=== PATIENT | male | born 1950 | race Hispanic/Latino ===

== ENCOUNTER 2018-09-01 15:34 | Inpatient (IN) | payer MEDICARE ==
[2018-09-01] MEDS ORDERED: NACL 0.9% 1000 ML 1,000 ML IV ONE ×2 (15:56→19:37)
[2018-09-01 16:17] LABS: Basophils # (Auto) 0.1 K/mm3 (0.0-0.1); Basophils % (Auto) 0.9 % (0.0-1.8); Eosinophils # (Auto) 0.1 K/mm3 (0.0-0.4); Eosinophils % (Auto) 1.2 % (0.0-4.3); Hematocrit 38.9 % (35.5-45.6); Hemoglobin 13.8 gm/dl (11.8-15.2); Lymphocytes # (Auto) 1.9 K/mm3 (1.2-5.4); Lymphocytes % (Auto) 15.4 % (13.4-35.0); Mean Corpuscular HGB Conc 36 % (32-34); Mean Corpuscular Volume 90 fl (84-94); Monocytes # (Auto) 0.9 K/mm3 (0.0-0.8); Monocytes % (Auto) 7.7 % (0.0-7.3); Platelet Count 195 K/mm3 (140-440); Red Blood Count 4.33 M/mm3 (3.65-5.03); Red Cell Distribution Width 14.3 % (13.2-15.2)
[2018-09-01 16:26] LABS: INR 1.02 (0.87-1.13)
[2018-09-01 16:27] LABS: Partial Thromboplastin Time 29.6 Sec. (24.2-36.6)
[2018-09-01 16:37] LABS: Alanine Aminotransferase 26 units/L (7-56); Albumin 4.4 g/dL (3.9-5); BUN/Creatinine Ratio 16; Blood Urea Nitrogen 19 mg/dL (9-20); Calcium 9.1 mg/dL (8.4-10.2); Hemolysis Index 9
[2018-09-01 17:59] LABS: Bilirubin,Urine NEG (Negative); Blood,Urine NEG (Negative); Color,Urine Yellow (Yellow); WBC,Urine < 1.0 /HPF (0.0-6.0)
[2018-09-01 18:08] LABS: Amphetamine Screen,Urine PRESUMPTIVE NEGATIVE; Benzodiazepines Screen,Urine PRESUMPTIVE NEGATIVE; Cannabinoid Screen,Urine PRESUMPTIVE NEGATIVE; Cocaine Screen,Urine PRESUMPTIVE NEGATIVE; Methadone Screen,Urine PRESUMPTIVE NEGATIVE; Opiate Screen,Urine PRESUMPTIVE NEGATIVE
--- NOTE | 2018-09-01 18:31 | Cat Scan Report ---
PROCEDURE: CT HEAD/BRAIN WO CON TECHNIQUE: Computerized tomography of the head was performed without contrast material. CT DOSE LENGTH PRODUCT: 1077.2 mGycm HISTORY: AMS COMPARISONS: None . FINDINGS: Low-attenuation in the subcortical and deep white matter of the cerebral hemispheres bilaterally most likely represents chronic postischemic demyelination/small vessel disease. There appear to be lacunar infarcts in the white matter of the maciel radiata, centrum semiovale dariana l and left caudate of indeterminate age. There is no evidence of intracranial hemorrhage or mass effect. Ventricular size is concordant with the degree of atrophy. There is atherosclerotic vascular calcification of the internal carotid arteries bilaterally and left vertebral artery at the skull base. The visualized portions of the orbits, paranasal and mastoid sinuses are notable for near complete op acification of the right frontal sinus with an air-fluid level. There is mild to moderate bilateral e thmoid sinus mucosal thickening. The bony structures are unremarkable. IMPRESSION: 1. White matter changes that most likely represent chronic postischemic demyelination/small vessel di sease and chronic lacunar infarcts in the cerebral white matter and left basal ganglia of indetermina te age. If there is a clinical suspicion of acute cerebral ischemia and if there is no clinical contraindicat ion, MRI brain may be helpful. 2. Bilateral ethmoid and right frontal sinus disease with possible acute sinusitis right frontal sinu s. This document is electronically signed by Cinthya Sewell MD., September 01 2018 06:29:39 PM ET
--- NOTE | 2018-09-01 18:35 | XRay Report ---
PROCEDURE: XR CHEST 1V AP TECHNIQUE: Chest radiograph single view. HISTORY: Altered Mental Status COMPARISONS: None . FINDINGS: There is the appearance of patchy areas of pulmonary consolidation in the right upper lung field and lung bases bilaterally suggestive of pulmonary infiltrates. There is no evidence of pneumothorax or pleural fluid collection. The cardiac silhouette is enlarged. The thoracic aorta is mildly tortuous. The bony structures are notable for levocurvature of the lower thoracic spine. IMPRESSION: 1. Patchy areas of pulmonary consolidation right upper lung field and both lung bases suggestive of p ulmonary infiltrates. PA and lateral views of the chest were CT chest may be helpful for further evaluation. 2. Enlarged cardiac silhouette. This document is electronically signed by Cinthya Sewell MD., September 01 2018 06:33:02 PM ET
[2018-09-01] MEDS ORDERED: LEVAQUIN 750MG/150ML 750 MG/150 ML BAG IV ONE (19:18)
--- NOTE | 2018-09-01 19:21 | Emergency Department Report ---
ED Altered Mental Status HPI - General Chief Complaint: Altered Mental Status Stated Complaint: RACHELLE Time Seen by Provider: 09/01/18 15:56 Source: patient, EMS Mode of arrival: Stretcher Limitations: Altered Mental Status - History of Present Illness Initial Comments: 67-year-old male found [employer], very disoriented, does not know the date, time, and not oriented to person. He was then transferred to ED via EMS. Finger stick glucose were within normal limits, upon arrival, patient denies any focal weakness, was oriented to time but not to person and place. Lean ED patient became more oriented, denies any focal weakness, complain of a mild generalized weakness. Unable to locate patient's family although several attempts were made, by calling the phone numbers on his phone that had similar last name to his. After a few hours in ED patient's neighbor was able to be located, he states that the patient's mental status is totally different from what he used to. - Related Data Home Medications Medication Instructions Recorded Confirmed Last Taken Unobtainable 09/01/18 09/01/18 Unknown Allergies Allergy/AdvReac Type Severity Reaction Status Date / Time No Known Allergies Allergy Unverified 09/01/18 16:03 ED Review of Systems ROS: Stated complaint: RACHELLE Other details as noted in HPI Comment: Unobtainable due to pts medical conditions ED Past Medical Hx - Social History Smoking Status: Current Every Day Smoker Substance Use Type: None - Medications Home Medications: Home Medications Medication Instructions Recorded Confirmed Last Taken Type Unobtainable 09/01/18 09/01/18 Unknown History ED Physical Exam - General Limitations: Altered Mental Status General appearance: alert, in no apparent distress - Head Head exam: Present: atraumatic, normocephalic - Eye Eye exam: Present: normal appearance - ENT ENT exam: Present: normal exam - Neck Neck exam: Present: normal inspection - Respiratory Respiratory exam: Present: other (decreased breath sound bilaterally) - Cardiovascular Cardiovascular Exam: Present: regular rate - GI/Abdominal GI/Abdominal exam: Present: soft, normal bowel sounds - Extremities Exam Extremities exam: Present: normal inspection - Back Exam Back exam: Present: normal inspection - Neurological Exam Neurological exam: Present: alert, oriented X3 - Assessment Assessment Interval: Baseline - Level of Consciousness 1a. Level of Consciousness: alert/keenly responsive - LOC Questions 1b. LOC Questions: answers both correctly - LOC Command 1c. LOC Commands: performs tasks correctly - Best Gaze 2. Best Gaze: normal - Visual 3. Visual: no visual loss - Facial Palsy 4. Facial Palsy: normal symmetrical movement - Motor Arm 5a. Motor Arm Left: no drift 5b. Motor Arm Right: no drift - Motor Leg 6a. Motor Leg Left: no drift 6b. Motor Leg Right: no drift - Limb Ataxia 7. Limb Ataxia: absent - Sensory 8. Sensory: normal - Best Language 9. Best Language: no aphasia - Dysarthria 10. Dysarthria: normal - Extinction and Inattention 11. Extinction/Inattention: no abnormality - Scoring Total Score: 0 Stroke Severity: No Stroke Symptoms ED Course Vital Signs 09/01/18 09/01/18 09/01/18 15:53 15:59 17:22 Temperature 98.2 F Pulse Rate 90 70 Respiratory 19 19 18 Rate Blood Pressure 160/97 Blood Pressure 163/89 [Left] O2 Sat by Pulse 96 96 96 Oximetry 09/01/18 18:54 Temperature Pulse Rate 78 Respiratory 14 Rate Blood Pressure Blood Pressure 186/97 [Left] O2 Sat by Pulse 96 Oximetry - Lab Data Result diagrams: 09/01/18 Unknown 09/01/18 Unknown Lab Results 09/01/18 09/01/18 09/01/18 Range/Units 16:08 17:50 17:50 WBC (4.5-11.0) K/mm3 RBC (3.65-5.03) M/mm3 Hgb (11.8-15.2) gm/dl Hct (35.5-45.6) % MCV (84-94) fl MCH (28-32) pg MCHC (32-34) % RDW (13.2-15.2) % Plt Count (140-440) K/mm3 Lymph % (Auto) (13.4-35.0) % [place] % (Auto) (0.0-7.3) % Eos % (Auto) (0.0-4.3) % Baso % (Auto) (0.0-1.8) % Lymph # (1.2-5.4) K/mm3 [place] # (0.0-0.8) K/mm3 Eos # (0.0-0.4) K/mm3 Baso # (0.0-0.1) K/mm3 Seg Neutrophils % (40.0-70.0) % Seg Neutrophils # (1.8-7.7) K/mm3 PT (12.2-14.9) Sec. INR (0.87-1.13) APTT (24.2-36.6) Sec. Sodium (137-145) mmol/L Potassium (3.6-5.0) mmol/L Chloride (98-107) mmol/L Carbon Dioxide (22-30) mmol/L Anion Gap mmol/L BUN (9-20) mg/dL Creatinine (0.8-1.5) mg/dL Estimated GFR ml/min BUN/Creatinine Ratio % Glucose (75-100) mg/dL Lactic Acid 1.40 (0.7-2.0) mmol/L Calcium (8.4-10.2) mg/dL Total Bilirubin (0.1-1.2) mg/dL AST (5-40) units/L ALT (7-56) units/L Alkaline Phosphatase (35-129) units/L Total Protein (6.3-8.2) g/dL Albumin (3.9-5) g/dL Albumin/Globulin Ratio % Urine Color Yellow (Yellow) Urine Turbidity Clear (Clear) Urine pH 7.0 (5.0-7.0) Ur Specific Felt 1.012 (1.003-1.030) Urine Protein 100 mg/dl (Negative) mg/dL Urine Glucose (UA) Neg (Negative) mg/dL Urine Ketones Tr (Negative) mg/dL Urine Blood Neg (Negative) Urine Nitrite Neg (Negative) Urine Bilirubin Neg (Negative) Urine Urobilinogen 2.0 (<2.0) mg/dL Ur Leukocyte Esterase Neg (Negative) Urine WBC (Auto) < 1.0 (0.0-6.0) /HPF Urine RBC (Auto) 2.0 (0.0-6.0) /HPF Urine Opiates Screen Presumptive negative Urine Methadone Screen Presumptive negative Ur Barbiturates Screen Presumptive negative Ur Phencyclidine Scrn Presumptive negative Ur Amphetamines Screen Presumptive negative U Benzodiazepines Scrn Presumptive negative Urine Cocaine Screen Presumptive negative U Marijuana (THC) Screen Presumptive negative Drugs of Abuse Note Disclamer Plasma/Serum Alcohol (0-0.07) % 09/01/18 09/01/18 09/01/18 Range/Units 19:22 Unknown Unknown WBC 12.3 H (4.5-11.0) K/mm3 RBC 4.33 (3.65-5.03) M/mm3 Hgb 13.8 (11.8-15.2) gm/dl Hct 38.9 (35.5-45.6) % MCV 90 (84-94) fl MCH 32 (28-32) pg MCHC 36 H (32-34) % RDW 14.3 (13.2-15.2) % Plt Count 195 (140-440) K/mm3 Lymph % (Auto) 15.4 (13.4-35.0) % [place] % (Auto) 7.7 H (0.0-7.3) % Eos % (Auto) 1.2 (0.0-4.3) % Baso % (Auto) 0.9 (0.0-1.8) % Lymph # 1.9 (1.2-5.4) K/mm3 [place] # 0.9 H (0.0-0.8) K/mm3 Eos # 0.1 (0.0-0.4) K/mm3 Baso # 0.1 (0.0-0.1) K/mm3 Seg Neutrophils % 74.8 H (40.0-70.0) % Seg Neutrophils # 9.2 H (1.8-7.7) K/mm3 PT 13.1 (12.2-14.9) Sec. INR 1.02 (0.87-1.13) APTT 29.6 (24.2-36.6) Sec. Sodium (137-145) mmol/L Potassium (3.6-5.0) mmol/L Chloride (98-107) mmol/L Carbon Dioxide (22-30) mmol/L Anion Gap mmol/L BUN (9-20) mg/dL Creatinine (0.8-1.5) mg/dL Estimated GFR ml/min BUN/Creatinine Ratio % Glucose (75-100) mg/dL Lactic Acid (0.7-2.0) mmol/L Calcium (8.4-10.2) mg/dL Total Bilirubin (0.1-1.2) mg/dL AST (5-40) units/L ALT (7-56) units/L Alkaline Phosphatase (35-129) units/L Total Protein (6.3-8.2) g/dL Albumin (3.9-5) g/dL Albumin/Globulin Ratio % Urine Color (Yellow) Urine Turbidity (Clear) Urine pH (5.0-7.0) Ur Specific Felt (1.003-1.030) Urine Protein (Negative) mg/dL Urine Glucose (UA) (Negative) mg/dL Urine Ketones (Negative) mg/dL Urine Blood (Negative) Urine Nitrite (Negative) Urine Bilirubin (Negative) Urine Urobilinogen (<2.0) mg/dL Ur Leukocyte Esterase (Negative) Urine WBC (Auto) (0.0-6.0) /HPF Urine RBC (Auto) (0.0-6.0) /HPF Urine Opiates Screen Urine Methadone Screen Ur Barbiturates Screen Ur Phencyclidine Scrn Ur Amphetamines Screen U Benzodiazepines Scrn Urine Cocaine Screen U Marijuana (THC) Screen Drugs of Abuse Note Plasma/Serum Alcohol < 0.01 (0-0.07) % 09/01/18 Range/Units Unknown WBC (4.5-11.0) K/mm3 RBC (3.65-5.03) M/mm3 Hgb (11.8-15.2) gm/dl Hct (35.5-45.6) % MCV (84-94) fl MCH (28-32) pg MCHC (32-34) % RDW (13.2-15.2) % Plt Count (140-440) K/mm3 Lymph % (Auto) (13.4-35.0) % [place] % (Auto) (0.0-7.3) % Eos % (Auto) (0.0-4.3) % Baso % (Auto) (0.0-1.8) % Lymph # (1.2-5.4) K/mm3 [place] # (0.0-0.8) K/mm3 Eos # (0.0-0.4) K/mm3 Baso # (0.0-0.1) K/mm3 Seg Neutrophils % (40.0-70.0) % Seg Neutrophils # (1.8-7.7) K/mm3 PT (12.2-14.9) Sec. INR (0.87-1.13) APTT (24.2-36.6) Sec. Sodium 141 (137-145) mmol/L Potassium 3.5 L (3.6-5.0) mmol/L Chloride 104.2 (98-107) mmol/L Carbon Dioxide 21 L (22-30) mmol/L Anion Gap 19 mmol/L BUN 19 (9-20) mg/dL Creatinine 1.2 (0.8-1.5) mg/dL Estimated GFR > 60 ml/min BUN/Creatinine Ratio 16 % Glucose 116 H (75-100) mg/dL Lactic Acid (0.7-2.0) mmol/L Calcium 9.1 (8.4-10.2) mg/dL Total Bilirubin 0.60 (0.1-1.2) mg/dL AST 21 (5-40) units/L ALT 26 (7-56) units/L Alkaline Phosphatase 64 (35-129) units/L Total Protein 7.0 (6.3-8.2) g/dL Albumin 4.4 (3.9-5) g/dL Albumin/Globulin Ratio 1.7 % Urine Color (Yellow) Urine Turbidity (Clear) Urine pH (5.0-7.0) Ur Specific Felt (1.003-1.030) Urine Protein (Negative) mg/dL Urine Glucose (UA) (Negative) mg/dL Urine Ketones (Negative) mg/dL Urine Blood (Negative) Urine Nitrite (Negative) Urine Bilirubin (Negative) Urine Urobilinogen (<2.0) mg/dL Ur Leukocyte Esterase (Negative) Urine WBC (Auto) (0.0-6.0) /HPF Urine RBC (Auto) (0.0-6.0) /HPF Urine Opiates Screen Urine Methadone Screen Ur Barbiturates Screen Ur Phencyclidine Scrn Ur Amphetamines Screen U Benzodiazepines Scrn Urine Cocaine Screen U Marijuana (THC) Screen Drugs of Abuse Note Plasma/Serum Alcohol (0-0.07) % - Medical Decision Making 67-year-old male found [employer], very disoriented, does not know the date, time, and not oriented to person. He was then transferred to ED via EMS. Finger stick glucose were within normal limits, upon arrival, patient denies any focal weakness, was oriented to time but not to person and place. Lean ED patient became more oriented, denies any focal weakness, complain of a mild generalized weakness. Unable to locate patient's family although several attempts were made, by calling the phone numbers on his phone that had similar last name to his. After a few hours in ED patient's neighbor was able to be located, he states that the patient's mental status is totally different from what he used to. Pulmonary infiltrate in x-ray, will cover with antibiotics. Obtain blood cultures. [facility] Critical care attestation.: If time is entered above; I have spent that time in minutes in the direct care of this critically ill patient, excluding procedure time. ED Disposition Clinical Impression: Altered mental status Qualifiers: Altered mental status type: unspecified Qualified Code(s): R41.82 - Altered mental status, unspecified Pneumonia Qualifiers: Pneumonia type: due to unspecified organism Laterality: bilateral Lung location: unspecified part of lung Qualified Code(s): J18.9 - Pneumonia, unspecified organism Disposition: OP ADMIT IP TO THIS HOSP Is pt being admited?: Yes Does the pt Need Aspirin: No Condition: Stable Instructions: Bacterial Pneumonia (ED) Referrals: SUNNY LIZAMA MD [Primary Care Provider] - 3-5 Days
[2018-09-01] MEDS ORDERED: ROCEPHIN/NS 2 GM/100 ML 2 GM/100 ML BAG IV ONE (20:00)
[2018-09-01] MEDS ORDERED: TYLENOL PO PRN (20:08)
[2018-09-01] MEDS ORDERED: SODIUM CHLORIDE FLUSH SYRINGE 10 ML IV PRN (20:08)
[2018-09-01] MEDS ORDERED: ZOFRAN IV PRN (20:08)
[2018-09-01] MEDS ORDERED: ROCEPHIN IM ONE (20:24)
--- NOTE | 2018-09-01 20:34 | History and Physical Report ---
History of Present Illness Date of examination: 09/01/18 Date of admission: 09/01/18 19:36 Chief complaint: Altered mental status History of present illness: 67-year-old male found at local [facility], where he was attempted to drive his car inside the building who presents to our facility via EMS. He was found to be confused and disoriented. Patient is unable to provide history due to his altered mental status. Patient's neighbor Brad is at bedside but unable to provide detailed medical history. However Brad verified patient's mentation is not baseline. Patient has a brother by the name of Chung was also able to provide any detailed information. Information is needed or for patient updates please contact Brad at [phone]. Past History Past Medical History: No medical history (unable to obtain due to patient's altered mental status) Medications and Allergies Allergies Allergy/AdvReac Type Severity Reaction Status Date / Time No Known Allergies Allergy Unverified 09/01/18 16:03 Home Medications Medication Instructions Recorded Confirmed Last Taken Type Unobtainable 09/01/18 09/01/18 Unknown History Active Meds: Active Medications Acetaminophen (Tylenol) 650 mg PO Q4H PRN PRN Reason: Pain MILD(1-3)/Fever >100.5/HAYDEN Amlodipine Besylate (Norvasc) 5 mg PO ONCE ONE Stop: 09/01/18 20:17 Aspirin (Baby Aspirin) 81 mg PO QDAY [facility] Atorvastatin Calcium (Lipitor) 20 mg PO QHS [facility] Docusate Sodium (Colace) 100 mg PO BID [facility] Enoxaparin Sodium (Lovenox) 40 mg SUB-Q QDAY [facility] Hydralazine HCl (Apresoline) 10 mg IV Q4HR PRN PRN Reason: Blood Pressure Sodium Chloride (Nacl 0.9% 1000 Ml) 1,000 mls @ 999 mls/hr IV BOLUS ONE Stop: 09/01/18 20:37 Levofloxacin/Dextrose (Levaquin 500mg/100ml) 500 mg in 100 mls @ 100 mls/hr IV Q24HR [facility]; Protocol Ondansetron HCl (Zofran) 4 mg IV Q8H PRN PRN Reason: Nausea And Vomiting Potassium Chloride (K-Dur) 40 meq PO ONCE ONE Stop: 09/01/18 20:18 Sodium Chloride (Sodium Chloride Flush Syringe 10 Ml) 10 ml IV BID LIAN Sodium Chloride (Sodium Chloride Flush Syringe 10 Ml) 10 ml IV PRN PRN PRN Reason: LINE FLUSH Review of Systems ROS unobtainable: due to mental status Exam - Physical Exam Narrative exam: Physical exam General appearance: Present: No acute distress, confused, alert, oriented to self and place, older adult male - EENT Eyes: Present: PERRL, EOM intact ENT: hearing intact, poor dentition - Neck Neck: Present: supple, normal ROM - Respiratory Respiratory effort: Non-labored Respiratory: bilateral: diminished (bases) - Cardiovascular Heart rate: 85 (bpm) Rhythm: Sinus rhythm, incomplete right bundle branch block Heart Sounds: Present: S1 & S2. Absent: rub, click - Extremities Extremities: no ischemia, pulses intact, - Peripheral Assessment Peripheral Pulses: within normal limits - Abdominal General gastrointestinal: soft, non-tender, normal bowel sounds - Integumentary Integumentary: Present: warm, dry - Musculoskeletal Musculoskeletal: Able to move all extremities -Neurological Neurological: CN II-XII intact - Psychiatric Psychiatric: Confused but cooperative - Constitutional Vitals: Temp Pulse Resp BP Pulse Ox 98.2 F 78 17 178/92 95 09/01/18 20:13 09/01/18 20:13 09/01/18 20:13 09/01/18 20:13 09/01/18 20:13 Results - Labs CBC & Chem 7: 09/01/18 Unknown 09/01/18 Unknown Labs: Laboratory Last Values WBC 12.3 K/mm3 (4.5-11.0) H 09/01/18 Unknown RBC 4.33 M/mm3 (3.65-5.03) 09/01/18 Unknown Hgb 13.8 gm/dl (11.8-15.2) 09/01/18 Unknown Hct 38.9 % (35.5-45.6) 09/01/18 Unknown MCV 90 fl (84-94) 09/01/18 Unknown MCH 32 pg (28-32) 09/01/18 Unknown MCHC 36 % (32-34) H 09/01/18 Unknown RDW 14.3 % (13.2-15.2) 09/01/18 Unknown Plt Count 195 K/mm3 (140-440) 09/01/18 Unknown Lymph % (Auto) 15.4 % (13.4-35.0) 09/01/18 Unknown [place] % (Auto) 7.7 % (0.0-7.3) H 09/01/18 Unknown Eos % (Auto) 1.2 % (0.0-4.3) 09/01/18 Unknown Baso % (Auto) 0.9 % (0.0-1.8) 09/01/18 Unknown Lymph # 1.9 K/mm3 (1.2-5.4) 09/01/18 Unknown [place] # 0.9 K/mm3 (0.0-0.8) H 09/01/18 Unknown Eos # 0.1 K/mm3 (0.0-0.4) 09/01/18 Unknown Baso # 0.1 K/mm3 (0.0-0.1) 09/01/18 Unknown Seg Neutrophils % 74.8 % (40.0-70.0) H 09/01/18 Unknown Seg Neutrophils # 9.2 K/mm3 (1.8-7.7) H 09/01/18 Unknown PT 13.1 Sec. (12.2-14.9) 09/01/18 Unknown INR 1.02 (0.87-1.13) 09/01/18 Unknown APTT 29.6 Sec. (24.2-36.6) 09/01/18 Unknown Sodium 141 mmol/L (137-145) 09/01/18 Unknown Potassium 3.5 mmol/L (3.6-5.0) L 09/01/18 Unknown Chloride 104.2 mmol/L (98-107) 09/01/18 Unknown Carbon Dioxide 21 mmol/L (22-30) L 09/01/18 Unknown 19 mmol/L 09/01/18 Unknown BUN 19 mg/dL (9-20) 09/01/18 Unknown 1.2 mg/dL (0.8-1.5) 09/01/18 Unknown Estimated GFR > 60 ml/min 09/01/18 Unknown 16 % 09/01/18 Unknown Glucose 116 mg/dL (75-100) H 09/01/18 Unknown Lactic Acid 1.40 mmol/L (0.7-2.0) 09/01/18 16:08 Calcium 9.1 mg/dL (8.4-10.2) 09/01/18 Unknown 0.60 mg/dL (0.1-1.2) 09/01/18 Unknown AST 21 units/L (5-40) 09/01/18 Unknown ALT 26 units/L (7-56) 09/01/18 Unknown 64 units/L (35-129) 09/01/18 Unknown 7.0 g/dL (6.3-8.2) 09/01/18 Unknown 4.4 g/dL (3.9-5) 09/01/18 Unknown 1.7 % 09/01/18 Unknown Yellow (Yellow) 09/01/18 17:50 Clear (Clear) 09/01/18 17:50 7.0 (5.0-7.0) 09/01/18 17:50 Ur Specific [place] 1.012 (1.003-1.030) 09/01/18 17:50 100 mg/dl mg/dL (Negative) 09/01/18 17:50 Neg mg/dL (Negative) 09/01/18 17:50 Tr mg/dL (Negative) 09/01/18 17:50 Neg (Negative) 09/01/18 17:50 Neg (Negative) 09/01/18 17:50 Neg (Negative) 09/01/18 17:50 2.0 mg/dL (<2.0) 09/01/18 17:50 Ur Leukocyte Esterase Neg (Negative) 09/01/18 17:50 < 1.0 /HPF (0.0-6.0) 09/01/18 17:50 2.0 /HPF (0.0-6.0) 09/01/18 17:50 Presumptive negative 09/01/18 17:50 Presumptive negative 09/01/18 17:50 Ur Barbiturates Screen Presumptive negative 09/01/18 17:50 Ur Phencyclidine Scrn Presumptive negative 09/01/18 17:50 Ur Amphetamines Screen Presumptive negative 09/01/18 17:50 U Benzodiazepines Scrn Presumptive negative 09/01/18 17:50 Presumptive negative 09/01/18 17:50 U Marijuana (THC) Screen Presumptive negative 09/01/18 17:50 Disclamer 09/01/18 17:50 Plasma/Serum Alcohol < 0.01 % (0-0.07) 09/01/18 19:22 - Imaging and Cardiology EKG: image reviewed (sinus rhythm 85 bpm, incomplete right bundle branch block) Chest x-ray: report reviewed (1. Patchy areas of pulmonary consolidation right upper lung field and both lung bases suggestive of pulmonary infiltrates. PA and lateral views of the chest were CT chest may be helpful for further evaluation. 2. Enlarged cardiac silhouette. ), image reviewed CT Scan - head: report reviewed (IMPRESSION: 1. White matter changes that most likely represent chronic postischemic demyelination/small vessel disease and chronic lacunar infarcts in the cerebral white matter and left basal ganglia of indeterminate age. If there is a clinical suspicion of acute cerebralischemia and if there is no clinical contraindication, MRI brain may be helpful. 2. Bilateral ethmoid and right frontal sinus disease with possible acute sinusitis right frontal sinus.), image reviewed Assessment and Plan Assessment and plan: 67-year-old male found at [facility], where he was attempted to drive his car inside the building who presents to our facility via EMS. He was found to be confused and disoriented. Upon arrival to our facility patient is found to be in hypertensive urgency with blood pressure 186/97. Blood glucose WNL. CXR showed patchy areas of pulmonary consolidation right upper lung field and both lung bases suggestive of pulmonary infiltrates. WBC elevated at 12.3. UA and toxicology are negative. 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 At the time of my examination patient orientation has slightly improved. He is oriented to self and place but otherwise remains confused. Will admit to Telemetry. Community acquired pneumonia Acute metabolic encephalopathy-likely secondary to CPAP R/O TIA Hypertensive urgency Abnormal head CT Hypokalemia Leukocytosis Plan: Continue supportive care Continuous telemetry monitoring Neurochecks Monitor WBC Start Levaquin 500 mg every 24 hours MRI brain pending Monitor electrolytes; replete as needed Potassium 40 mEq by mouth 1 Monitor BP IV hydralazine when necessary Start Norvasc 5 mg daily Lipid panel pending ASA 81 mg daily, Lipitor 20 mg daily at bedtime Advance Directives: No VTE prophylaxis?: Chemical Plan of care discussed with patient/family: Yes
[2018-09-01] MEDS ORDERED: NORVASC PO ONE (21:00)
[2018-09-01] MEDS: ATIVAN IV PRN (22:22)
[2018-09-01] MEDS: COLACE PO SCH (22:28)
[2018-09-01] MEDS: K-DUR PO ONE ×2 (22:29→23:28)
[2018-09-01] MEDS: SODIUM CHLORIDE FLUSH SYRINGE 10 ML IV SCH (22:29)
[2018-09-01] MEDS ORDERED: POTASSIUM CHLORIDE PO ONE (23:00)
[2018-09-02 06:00] LABS: Basophils # (Auto) 0.1 K/mm3 (0.0-0.1); Basophils % (Auto) 0.6 % (0.0-1.8); Eosinophils # (Auto) 0.2 K/mm3 (0.0-0.4); Eosinophils % (Auto) 1.3 % (0.0-4.3); Hematocrit 42.1 % (35.5-45.6); Hemoglobin 14.7 gm/dl (11.8-15.2); Lymphocytes # (Auto) 1.6 K/mm3 (1.2-5.4); Lymphocytes % (Auto) 13.8 % (13.4-35.0); Mean Corpuscular HGB Conc 35 % (32-34); Mean Corpuscular Volume 90 fl (84-94); Monocytes # (Auto) 0.9 K/mm3 (0.0-0.8); Monocytes % (Auto) 7.9 % (0.0-7.3); Platelet Count 185 K/mm3 (140-440); Red Blood Count 4.68 M/mm3 (3.65-5.03); Red Cell Distribution Width 14.3 % (13.2-15.2)
[2018-09-02 06:26] LABS: BUN/Creatinine Ratio 13; Blood Urea Nitrogen 13 mg/dL (9-20); Calcium 8.9 mg/dL (8.4-10.2); HDL Cholesterol 72 mg/dL (40-59); Hemolysis Index 6; LDL Cholesterol,Direct 115 mg/dL (50-130)
[2018-09-02] MEDS: ATIVAN IV PRN ×3 (09:27→15:54)
[2018-09-02] MEDS: SODIUM CHLORIDE FLUSH SYRINGE 10 ML IV SCH ×2 (09:27→22:12)
[2018-09-02] MEDS: LEVAQUIN 500MG/100ML 500 MG/100 ML BAG IV SCH (09:27)
[2018-09-02] MEDS: BABY ASPIRIN PO SCH (09:27)
[2018-09-02] MEDS: COLACE PO SCH ×2 (09:27→22:12)
[2018-09-02] MEDS: LOVENOX SUB-Q SCH (09:27)
--- NOTE | 2018-09-02 11:38 | Progress Note ---
Assessment and Plan Assessment and plan: 67-year-old male found at local [facility], where he was attempted to drive his car inside the building who presents to our facility via EMS. He was found to be confused and disoriented. Upon arrival to our facility patient is found to be in hypertensive urgency with blood pressure 186/97. Blood glucose WNL. CXR showed patchy areas of pulmonary consolidation right upper lung field and both lung bases suggestive of pulmonary infiltrates. WBC elevated at 12.3. UA and toxicology are negative. 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 At the time of my examination patient orientation has slightly improved. He is oriented to self and place but otherwise remains confused. Will admit to Telemetry. Assessment; Metabolic encephalopathy Community acquired pneumonia Acute metabolic encephalopathy-likely secondary to CPAP R/O TIA Hypertensive urgency Abnormal head CT Hypokalemia Leukocytosis Plan; Continuous telemetry monitoring Neurochecks Monitor WBC Continue Levaquin 500 mg every 24 hours Follow MRI Monitor electrolytes; replete as needed Potassium 40 mEq by mouth 1 Monitor BP IV hydralazine when necessary Start Norvasc 5 mg daily Lipid panel ASA 81 mg daily, Lipitor 20 mg daily at bedtime History Interval history: Patient seen and examined medical records reviewed Slightly better Vital signs noted Hospitalist Physical - Constitutional Vitals: Temp Pulse Resp BP Pulse Ox 97.5 F L 82 18 176/105 91 09/02/18 07:45 09/01/18 23:39 09/02/18 07:45 09/02/18 07:45 09/01/18 23:39 General appearance: Present: no acute distress, well-nourished - EENT Eyes: Present: PERRL, EOM intact - Neck Neck: Present: supple, normal ROM - Respiratory Respiratory effort: normal Respiratory: bilateral: diminished, negative: rales, rhonchi, wheezing - Cardiovascular Rhythm: regular Heart Sounds: Present: S1 & S2 - Extremities Extremities: no ischemia, No edema - Abdominal General gastrointestinal: soft, non-tender, non-distended, normal bowel sounds - Integumentary Integumentary: Present: clear, warm - Psychiatric Psychiatric: appropriate mood/affect, cooperative - Neurologic Neurologic: moves all extremities Results - Labs CBC & Chem 7: 09/02/18 05:32 09/02/18 05:32 Labs: Laboratory Last Values WBC 11.6 K/mm3 (4.5-11.0) H 09/02/18 05:32 RBC 4.68 M/mm3 (3.65-5.03) 09/02/18 05:32 Hgb 14.7 gm/dl (11.8-15.2) 09/02/18 05:32 Hct 42.1 % (35.5-45.6) 09/02/18 05:32 MCV 90 fl (84-94) 09/02/18 05:32 MCH 32 pg (28-32) 09/02/18 05:32 MCHC 35 % (32-34) H 09/02/18 05:32 RDW 14.3 % (13.2-15.2) 09/02/18 05:32 Plt Count 185 K/mm3 (140-440) 09/02/18 05:32 Lymph % (Auto) 13.8 % (13.4-35.0) 09/02/18 05:32 [place] % (Auto) 7.9 % (0.0-7.3) H 09/02/18 05:32 Eos % (Auto) 1.3 % (0.0-4.3) 09/02/18 05:32 Baso % (Auto) 0.6 % (0.0-1.8) 09/02/18 05:32 Lymph # 1.6 K/mm3 (1.2-5.4) 09/02/18 05:32 [place] # 0.9 K/mm3 (0.0-0.8) H 09/02/18 05:32 Eos # 0.2 K/mm3 (0.0-0.4) 09/02/18 05:32 Baso # 0.1 K/mm3 (0.0-0.1) 09/02/18 05:32 Seg Neutrophils % 76.4 % (40.0-70.0) H 09/02/18 05:32 Seg Neutrophils # 8.9 K/mm3 (1.8-7.7) H 09/02/18 05:32 PT 13.1 Sec. (12.2-14.9) 09/01/18 Unknown INR 1.02 (0.87-1.13) 09/01/18 Unknown APTT 29.6 Sec. (24.2-36.6) 09/01/18 Unknown Sodium 139 mmol/L (137-145) 09/02/18 05:32 Potassium 3.5 mmol/L (3.6-5.0) L 09/02/18 05:32 Chloride 103.9 mmol/L (98-107) 09/02/18 05:32 Carbon Dioxide 20 mmol/L (22-30) L 09/02/18 05:32 19 mmol/L 09/02/18 05:32 BUN 13 mg/dL (9-20) 09/02/18 05:32 1.0 mg/dL (0.8-1.5) 09/02/18 05:32 Estimated GFR > 60 ml/min 09/02/18 05:32 13 % 09/02/18 05:32 Glucose 102 mg/dL (75-100) H 09/02/18 05:32 Lactic Acid 1.40 mmol/L (0.7-2.0) 09/01/18 16:08 Calcium 8.9 mg/dL (8.4-10.2) 09/02/18 05:32 Phosphorus 1.60 mg/dL (2.5-4.5) L 09/02/18 05:32 Magnesium 2.30 mg/dL (1.7-2.3) 09/02/18 05:32 0.60 mg/dL (0.1-1.2) 09/01/18 Unknown AST 21 units/L (5-40) 09/01/18 Unknown ALT 26 units/L (7-56) 09/01/18 Unknown 64 units/L (35-129) 09/01/18 Unknown 7.0 g/dL (6.3-8.2) 09/01/18 Unknown 4.4 g/dL (3.9-5) 09/01/18 Unknown 1.7 % 09/01/18 Unknown Triglycerides 87 mg/dL (2-149) 09/02/18 05:32 Cholesterol 195 mg/dL (50-199) 09/02/18 05:32 115 mg/dL (50-130) 09/02/18 05:32 72 mg/dL (40-59) H 09/02/18 05:32 2.70 % 09/02/18 05:32 Yellow (Yellow) 09/01/18 17:50 Clear (Clear) 09/01/18 17:50 7.0 (5.0-7.0) 09/01/18 17:50 Ur Specific [place] 1.012 (1.003-1.030) 09/01/18 17:50 100 mg/dl mg/dL (Negative) 09/01/18 17:50 Neg mg/dL (Negative) 09/01/18 17:50 Tr mg/dL (Negative) 09/01/18 17:50 Neg (Negative) 09/01/18 17:50 Neg (Negative) 09/01/18 17:50 Neg (Negative) 09/01/18 17:50 2.0 mg/dL (<2.0) 09/01/18 17:50 Ur Leukocyte Esterase Neg (Negative) 09/01/18 17:50 < 1.0 /HPF (0.0-6.0) 09/01/18 17:50 2.0 /HPF (0.0-6.0) 09/01/18 17:50 Presumptive negative 09/01/18 17:50 Presumptive negative 09/01/18 17:50 Ur Barbiturates Screen Presumptive negative 09/01/18 17:50 Ur Phencyclidine Scrn Presumptive negative 09/01/18 17:50 Ur Amphetamines Screen Presumptive negative 09/01/18 17:50 U Benzodiazepines Scrn Presumptive negative 09/01/18 17:50 Presumptive negative 09/01/18 17:50 U Marijuana (THC) Screen Presumptive negative 09/01/18 17:50 Disclamer 09/01/18 17:50 Plasma/Serum Alcohol < 0.01 % (0-0.07) 09/01/18 19:22 Active Medications - Current Medications Current Medications: Generic Name Dose Route Start Last Admin Trade Name Freq PRN Reason Stop Dose Admin Acetaminophen 650 mg 09/01/18 20:08 Tylenol PO Q4H PRN Pain MILD(1-3)/Fever >100.5/HAYDEN Aspirin 81 mg 09/02/18 10:00 09/02/18 09:27 Baby Aspirin PO 81 mg QDAY LIAN Administration Atorvastatin Calcium 20 mg 09/01/18 22:00 09/01/18 22:28 Lipitor PO 20 mg QHS LIAN Administration Docusate Sodium 100 mg 09/01/18 22:00 09/02/18 09:27 Colace PO 100 mg BID LIAN Administration Enoxaparin Sodium 40 mg 09/02/18 10:00 09/02/18 09:27 Lovenox SUB-Q 40 mg QDAY LIAN Administration Hydralazine HCl 10 mg 09/01/18 20:14 Apresoline IV Q4H PRN Blood Pressure Levofloxacin/Dextrose 500 mg in 100 mls @ 100 mls/hr 09/02/18 10:00 09/02/18 09:27 Levaquin 500mg/100ml IV 100 mls/hr Q24HR LIAN Administration Protocol Lorazepam 2 mg 09/01/18 21:56 09/02/18 09:27 Ativan IV 2 mg Q1H PRN Administration CIWA-Ar 8-15 Lorazepam 4 mg 09/01/18 21:56 Ativan IV Q1H PRN CIWA-Ar 16-25 Ondansetron HCl 4 mg 09/01/18 20:08 Zofran IV Q8H PRN Nausea And Vomiting Sodium Chloride 10 ml 09/01/18 22:00 09/02/18 09:27 Sodium Chloride Flush Syringe 10 Ml IV 10 ml BID LIAN Administration Sodium Chloride 10 ml 09/01/18 20:08 Sodium Chloride Flush Syringe 10 Ml IV PRN PRN LINE FLUSH
[2018-09-02] MEDS ORDERED: MAGNESIUM SULFATE 2GM/50ML 2 GM/50 ML BAG IV ONE (12:40)
[2018-09-02] MEDS: APRESOLINE IV PRN (12:57)
[2018-09-02] MEDS: K-DUR PO NR ×2 (12:57→12:58)
[2018-09-02] MEDS: PHOS-NAK PO SCH (22:12)
[2018-09-03] MEDS: APRESOLINE IV PRN ×2 (00:54→07:30)
[2018-09-03] MEDS: ATIVAN IV PRN ×3 (03:40→14:01)
[2018-09-03] MEDS: PHOS-NAK PO SCH ×3 (06:43→22:08)
[2018-09-03] MEDS: LOVENOX SUB-Q SCH (10:48)
[2018-09-03] MEDS: SODIUM CHLORIDE FLUSH SYRINGE 10 ML IV SCH ×2 (10:49→22:08)
[2018-09-03] MEDS: BABY ASPIRIN PO SCH (12:48)
[2018-09-03] MEDS: LEVAQUIN 500MG/100ML 500 MG/100 ML BAG IV SCH (12:49)
[2018-09-03] MEDS: COLACE PO SCH ×2 (12:50→22:08)
--- NOTE | 2018-09-03 20:01 | Progress Note ---
Assessment and Plan Assessment and plan: 67-year-old male found at local [facility], where he was attempted to drive his car inside the building who presents to our facility via EMS. He was found to be confused and disoriented. Upon arrival to our facility patient is found to be in hypertensive urgency with blood pressure 186/97. Blood glucose WNL. CXR showed patchy areas of pulmonary consolidation right upper lung field and both lung bases suggestive of pulmonary infiltrates. Assessment; Metabolic encephalopathy Community acquired pneumonia Acute metabolic encephalopathy-likely secondary to CPAP R/O TIA Hypertensive urgency Abnormal head CT Hypokalemia Leukocytosis Plan; Continuous telemetry monitoring Neurochecks Monitor WBC Continue Levaquin 500 mg every 24 hours Follow MRI Monitor electrolytes; replete as needed Potassium 40 mEq by mouth 1 Monitor BP IV hydralazine when necessary Start Norvasc 5 mg daily Lipid panel ASA 81 mg daily, Lipitor 20 mg daily at bedtime History Interval history: Patient seen and examined medical records reviewed Patient is more alert and awake, confused at times Awaiting MRI, No family available for pre MRI checklist Vital signs noted Hospitalist Physical - Constitutional Vitals: Temp Pulse Resp BP Pulse Ox 98.6 F 107 H 18 160/99 95 09/03/18 16:16 09/03/18 16:16 09/03/18 16:16 09/03/18 16:16 09/03/18 16:16 General appearance: Present: no acute distress, well-nourished, other (confused at times) - EENT Eyes: Present: PERRL, EOM intact - Neck Neck: Present: supple, normal ROM - Respiratory Respiratory effort: normal Respiratory: bilateral: diminished, negative: rales, rhonchi, wheezing - Cardiovascular Rhythm: regular Heart Sounds: Present: S1 & S2 - Extremities Extremities: no ischemia, No edema - Abdominal General gastrointestinal: soft, non-tender, non-distended, normal bowel sounds - Integumentary Integumentary: Present: clear, warm - Psychiatric Psychiatric: appropriate mood/affect, other (confused at times) - Neurologic Neurologic: CNII-XII intact, moves all extremities Results - Labs CBC & Chem 7: 09/06/18 05:25 09/06/18 05:25 Labs: Laboratory Last Values WBC 11.6 K/mm3 (4.5-11.0) H 09/02/18 05:32 RBC 4.68 M/mm3 (3.65-5.03) 09/02/18 05:32 Hgb 14.7 gm/dl (11.8-15.2) 09/02/18 05:32 Hct 42.1 % (35.5-45.6) 09/02/18 05:32 MCV 90 fl (84-94) 09/02/18 05:32 MCH 32 pg (28-32) 09/02/18 05:32 MCHC 35 % (32-34) H 09/02/18 05:32 RDW 14.3 % (13.2-15.2) 09/02/18 05:32 Plt Count 185 K/mm3 (140-440) 09/02/18 05:32 Lymph % (Auto) 13.8 % (13.4-35.0) 09/02/18 05:32 [place] % (Auto) 7.9 % (0.0-7.3) H 09/02/18 05:32 Eos % (Auto) 1.3 % (0.0-4.3) 09/02/18 05:32 Baso % (Auto) 0.6 % (0.0-1.8) 09/02/18 05:32 Lymph # 1.6 K/mm3 (1.2-5.4) 09/02/18 05:32 [place] # 0.9 K/mm3 (0.0-0.8) H 09/02/18 05:32 Eos # 0.2 K/mm3 (0.0-0.4) 09/02/18 05:32 Baso # 0.1 K/mm3 (0.0-0.1) 09/02/18 05:32 Seg Neutrophils % 76.4 % (40.0-70.0) H 09/02/18 05:32 Seg Neutrophils # 8.9 K/mm3 (1.8-7.7) H 09/02/18 05:32 PT 13.1 Sec. (12.2-14.9) 09/01/18 Unknown INR 1.02 (0.87-1.13) 09/01/18 Unknown APTT 29.6 Sec. (24.2-36.6) 09/01/18 Unknown Sodium 139 mmol/L (137-145) 09/02/18 05:32 Potassium 3.5 mmol/L (3.6-5.0) L 09/02/18 05:32 Chloride 103.9 mmol/L (98-107) 09/02/18 05:32 Carbon Dioxide 20 mmol/L (22-30) L 09/02/18 05:32 19 mmol/L 09/02/18 05:32 BUN 13 mg/dL (9-20) 09/02/18 05:32 1.0 mg/dL (0.8-1.5) 09/02/18 05:32 Estimated GFR > 60 ml/min 09/02/18 05:32 13 % 09/02/18 05:32 Glucose 102 mg/dL (75-100) H 09/02/18 05:32 Lactic Acid 1.40 mmol/L (0.7-2.0) 09/01/18 16:08 Calcium 8.9 mg/dL (8.4-10.2) 09/02/18 05:32 Phosphorus 1.60 mg/dL (2.5-4.5) L 09/02/18 05:32 Magnesium 2.30 mg/dL (1.7-2.3) 09/02/18 05:32 0.60 mg/dL (0.1-1.2) 09/01/18 Unknown AST 21 units/L (5-40) 09/01/18 Unknown ALT 26 units/L (7-56) 09/01/18 Unknown 64 units/L (35-129) 09/01/18 Unknown 7.0 g/dL (6.3-8.2) 09/01/18 Unknown 4.4 g/dL (3.9-5) 09/01/18 Unknown 1.7 % 09/01/18 Unknown Triglycerides 87 mg/dL (2-149) 09/02/18 05:32 Cholesterol 195 mg/dL (50-199) 09/02/18 05:32 115 mg/dL (50-130) 09/02/18 05:32 72 mg/dL (40-59) H 09/02/18 05:32 2.70 % 09/02/18 05:32 Yellow (Yellow) 09/01/18 17:50 Clear (Clear) 09/01/18 17:50 7.0 (5.0-7.0) 09/01/18 17:50 Ur Specific [place] 1.012 (1.003-1.030) 09/01/18 17:50 100 mg/dl mg/dL (Negative) 09/01/18 17:50 Neg mg/dL (Negative) 09/01/18 17:50 Tr mg/dL (Negative) 09/01/18 17:50 Neg (Negative) 09/01/18 17:50 Neg (Negative) 09/01/18 17:50 Neg (Negative) 09/01/18 17:50 2.0 mg/dL (<2.0) 09/01/18 17:50 Ur Leukocyte Esterase Neg (Negative) 09/01/18 17:50 < 1.0 /HPF (0.0-6.0) 09/01/18 17:50 2.0 /HPF (0.0-6.0) 09/01/18 17:50 Presumptive negative 09/01/18 17:50 Presumptive negative 09/01/18 17:50 Ur Barbiturates Screen Presumptive negative 09/01/18 17:50 Ur Phencyclidine Scrn Presumptive negative 09/01/18 17:50 Ur Amphetamines Screen Presumptive negative 09/01/18 17:50 U Benzodiazepines Scrn Presumptive negative 09/01/18 17:50 Presumptive negative 09/01/18 17:50 U Marijuana (THC) Screen Presumptive negative 09/01/18 17:50 Disclamer 09/01/18 17:50 Plasma/Serum Alcohol < 0.01 % (0-0.07) 09/01/18 19:22 Active Medications - Current Medications Current Medications: Generic Name Dose Route Start Last Admin Trade Name Freq PRN Reason Stop Dose Admin Acetaminophen 650 mg 09/01/18 20:08 Tylenol PO Q4H PRN Pain MILD(1-3)/Fever >100.5/HAYDEN Aspirin 81 mg 09/02/18 10:00 09/03/18 12:48 Baby Aspirin PO 81 mg QDAY LIAN Administration Atorvastatin Calcium 20 mg 09/01/18 22:00 09/02/18 22:12 Lipitor PO 20 mg QHS LIAN Administration Docusate Sodium 100 mg 09/01/18 22:00 09/03/18 12:50 Colace PO 100 mg BID LIAN Administration Enoxaparin Sodium 40 mg 09/02/18 10:00 09/03/18 10:48 Lovenox SUB-Q 40 mg QDAY LIAN Administration Hydralazine HCl 10 mg 09/01/18 20:14 09/03/18 07:30 Apresoline IV 10 mg Q4H PRN Administration Blood Pressure Levofloxacin/Dextrose 500 mg in 100 mls @ 100 mls/hr 09/02/18 10:00 09/03/18 12:49 Levaquin 500mg/100ml IV 100 mls/hr Q24HR LIAN Administration Protocol Lorazepam 2 mg 09/01/18 21:56 09/03/18 14:01 Ativan IV 2 mg Q1H PRN Administration CIWA-Ar 8-15 Lorazepam 4 mg 09/01/18 21:56 Ativan IV Q1H PRN CIWA-Ar 16-25 Ondansetron HCl 4 mg 09/01/18 20:08 Zofran IV Q8H PRN Nausea And Vomiting Potassium Phos/Sodium Phos 1 each 09/02/18 22:00 09/03/18 13:19 Phos-Nak PO 1 each Q8HR LAIN Administration Sodium Chloride 10 ml 09/01/18 22:00 09/03/18 10:49 Sodium Chloride Flush Syringe 10 Ml IV 10 ml BID LIAN Administration Sodium Chloride 10 ml 09/01/18 20:08 Sodium Chloride Flush Syringe 10 Ml IV PRN PRN LINE FLUSH
[2018-09-04] MEDS: ATIVAN IV PRN ×6 (00:19→22:17)
[2018-09-04] MEDS: APRESOLINE IV PRN ×3 (00:29→16:16)
[2018-09-04] MEDS: PHOS-NAK PO SCH ×3 (05:28→21:58)
[2018-09-04 06:02] LABS: Basophils # (Auto) 0.1 K/mm3 (0.0-0.1); Basophils % (Auto) 0.9 % (0.0-1.8); Eosinophils # (Auto) 0.1 K/mm3 (0.0-0.4); Eosinophils % (Auto) 0.7 % (0.0-4.3); Hematocrit 45.6 % (35.5-45.6); Hemoglobin 15.9 gm/dl (11.8-15.2); Lymphocytes % (Auto) 14.1 % (13.4-35.0); Mean Corpuscular HGB Conc 35 % (32-34); Mean Corpuscular Volume 90 fl (84-94); Monocytes # (Auto) 1.2 K/mm3 (0.0-0.8); Monocytes % (Auto) 8.3 % (0.0-7.3); Platelet Count 241 K/mm3 (140-440); Red Blood Count 5.05 M/mm3 (3.65-5.03); Red Cell Distribution Width 14.5 % (13.2-15.2)
[2018-09-04 06:38] LABS: Calcium 10.3 mg/dL (8.4-10.2)
[2018-09-04] MEDS: COLACE PO SCH ×2 (10:28→21:58)
[2018-09-04] MEDS: BABY ASPIRIN PO SCH (10:28)
[2018-09-04] MEDS: LEVAQUIN 500MG/100ML 500 MG/100 ML BAG IV SCH (10:28)
[2018-09-04] MEDS: LOVENOX SUB-Q SCH (10:28)
[2018-09-04] MEDS: SODIUM CHLORIDE FLUSH SYRINGE 10 ML IV SCH ×2 (10:30→21:59)
--- NOTE | 2018-09-04 13:21 | Progress Note ---
Assessment and Plan Assessment and plan: Assessment; --Metabolic encephalopathy; multifactorial, possible sepsis, CVA TIA Supportive care, CT negative for acute abnormality Check MRI of the brain[unable to obtain as no family available] --Possible TIA: Supportive care as, further neuro workup if needed --Community acquired pneumonia; empiric antibiotics Follow cultures and supportive care --Hypertensive urgency; present on admission Moderate control, add oral hydralazine, when necessary IV hydralazine Closely monitor --Acute sinusitis; on CT, empiric antibiotics Closely monitor --Hypokalemia; replace per protocol monitor levels --Hypernatremia;D5W, monitor electrolytes --Leukocytosis; secondary to possible pneumonia, acute sinusitis Trending down, continue antibiotics, follow cultures --Dyslipidemia; continue statin --DVT to prophylaxis; Lovenox --Full code Monitor closely and adjust management as needed History Interval history: Patient seen and examined medical records reviewed No new events reported Patient is confused and agitated No family available Pending MRI Signs reviewed Hospitalist Physical - Constitutional Vitals: Temp Pulse Resp BP Pulse Ox 98.1 F 97 H 20 162/97 97 09/04/18 08:36 09/04/18 04:00 09/04/18 08:36 09/04/18 08:36 09/04/18 04:00 General appearance: Present: no acute distress, well-nourished, other (confused at times) - EENT Eyes: Present: PERRL, EOM intact - Neck Neck: Present: supple, normal ROM - Respiratory Respiratory effort: normal Respiratory: bilateral: diminished, negative: rales, rhonchi, wheezing - Cardiovascular Rhythm: regular Heart Sounds: Present: S1 & S2 - Extremities Extremities: no ischemia, No edema - Abdominal General gastrointestinal: soft, non-tender, non-distended, normal bowel sounds - Integumentary Integumentary: Present: clear, warm - Psychiatric Psychiatric: agitated, other (confused) - Neurologic Neurologic: moves all extremities Results - Labs CBC & Chem 7: 09/06/18 05:25 09/06/18 05:25 Labs: Laboratory Last Values WBC 14.3 K/mm3 (4.5-11.0) H 09/04/18 05:35 RBC 5.05 M/mm3 (3.65-5.03) H 09/04/18 05:35 Hgb 15.9 gm/dl (11.8-15.2) H 09/04/18 05:35 Hct 45.6 % (35.5-45.6) 09/04/18 05:35 MCV 90 fl (84-94) 09/04/18 05:35 MCH 31 pg (28-32) 09/04/18 05:35 MCHC 35 % (32-34) H 09/04/18 05:35 RDW 14.5 % (13.2-15.2) 09/04/18 05:35 Plt Count 241 K/mm3 (140-440) 09/04/18 05:35 Lymph % (Auto) 14.1 % (13.4-35.0) 09/04/18 05:35 [place] % (Auto) 8.3 % (0.0-7.3) H 09/04/18 05:35 Eos % (Auto) 0.7 % (0.0-4.3) 09/04/18 05:35 Baso % (Auto) 0.9 % (0.0-1.8) 09/04/18 05:35 Lymph # 2.0 K/mm3 (1.2-5.4) 09/04/18 05:35 [place] # 1.2 K/mm3 (0.0-0.8) H 09/04/18 05:35 Eos # 0.1 K/mm3 (0.0-0.4) 09/04/18 05:35 Baso # 0.1 K/mm3 (0.0-0.1) 09/04/18 05:35 Seg Neutrophils % 76.0 % (40.0-70.0) H 09/04/18 05:35 Seg Neutrophils # 10.9 K/mm3 (1.8-7.7) H 09/04/18 05:35 PT 13.1 Sec. (12.2-14.9) 09/01/18 Unknown INR 1.02 (0.87-1.13) 09/01/18 Unknown APTT 29.6 Sec. (24.2-36.6) 09/01/18 Unknown Sodium 147 mmol/L (137-145) H D 09/04/18 05:35 Potassium 3.6 mmol/L (3.6-5.0) 09/04/18 05:35 Chloride 108.6 mmol/L (98-107) H 09/04/18 05:35 Carbon Dioxide 18 mmol/L (22-30) L 09/04/18 05:35 24 mmol/L 09/04/18 05:35 BUN 24 mg/dL (9-20) H 09/04/18 05:35 1.3 mg/dL (0.8-1.5) 09/04/18 05:35 Estimated GFR 55 ml/min 09/04/18 05:35 18 % 09/04/18 05:35 Glucose 120 mg/dL (75-100) H 09/04/18 05:35 Lactic Acid 1.40 mmol/L (0.7-2.0) 09/01/18 16:08 Calcium 10.3 mg/dL (8.4-10.2) H D 09/04/18 05:35 Phosphorus 3.30 mg/dL (2.5-4.5) 09/04/18 05:35 Magnesium 2.60 mg/dL (1.7-2.3) H 09/04/18 05:35 0.60 mg/dL (0.1-1.2) 09/01/18 Unknown AST 21 units/L (5-40) 09/01/18 Unknown ALT 26 units/L (7-56) 09/01/18 Unknown 64 units/L (35-129) 09/01/18 Unknown 7.0 g/dL (6.3-8.2) 09/01/18 Unknown 4.4 g/dL (3.9-5) 09/01/18 Unknown 1.7 % 09/01/18 Unknown Triglycerides 87 mg/dL (2-149) 09/02/18 05:32 Cholesterol 195 mg/dL (50-199) 09/02/18 05:32 115 mg/dL (50-130) 09/02/18 05:32 72 mg/dL (40-59) H 09/02/18 05:32 2.70 % 09/02/18 05:32 Yellow (Yellow) 09/01/18 17:50 Clear (Clear) 09/01/18 17:50 7.0 (5.0-7.0) 09/01/18 17:50 Ur Specific [place] 1.012 (1.003-1.030) 09/01/18 17:50 100 mg/dl mg/dL (Negative) 09/01/18 17:50 Neg mg/dL (Negative) 09/01/18 17:50 Tr mg/dL (Negative) 09/01/18 17:50 Neg (Negative) 09/01/18 17:50 Neg (Negative) 09/01/18 17:50 Neg (Negative) 09/01/18 17:50 2.0 mg/dL (<2.0) 09/01/18 17:50 Ur Leukocyte Esterase Neg (Negative) 09/01/18 17:50 < 1.0 /HPF (0.0-6.0) 09/01/18 17:50 2.0 /HPF (0.0-6.0) 09/01/18 17:50 Presumptive negative 09/01/18 17:50 Presumptive negative 09/01/18 17:50 Ur Barbiturates Screen Presumptive negative 09/01/18 17:50 Ur Phencyclidine Scrn Presumptive negative 09/01/18 17:50 Ur Amphetamines Screen Presumptive negative 09/01/18 17:50 U Benzodiazepines Scrn Presumptive negative 09/01/18 17:50 Presumptive negative 09/01/18 17:50 U Marijuana (THC) Screen Presumptive negative 09/01/18 17:50 Disclamer 09/01/18 17:50 Plasma/Serum Alcohol < 0.01 % (0-0.07) 09/01/18 19:22 Active Medications - Current Medications Current Medications: Generic Name Dose Route Start Last Admin Trade Name Freq PRN Reason Stop Dose Admin Acetaminophen 650 mg 09/01/18 20:08 Tylenol PO Q4H PRN Pain MILD(1-3)/Fever >100.5/HAYDEN Aspirin 81 mg 09/02/18 10:00 09/04/18 10:28 Baby Aspirin PO 81 mg QDAY LIAN Administration Atorvastatin Calcium 20 mg 09/01/18 22:00 09/03/18 22:07 Lipitor PO 20 mg QHS LIAN Administration Docusate Sodium 100 mg 09/01/18 22:00 09/04/18 10:28 Colace PO 100 mg BID LIAN Administration Enoxaparin Sodium 40 mg 09/02/18 10:00 09/04/18 10:28 Lovenox SUB-Q 40 mg QDAY LIAN Administration Hydralazine HCl 10 mg 09/01/18 20:14 09/04/18 06:35 Apresoline IV 10 mg Q4H PRN Administration Blood Pressure Levofloxacin/Dextrose 500 mg in 100 mls @ 100 mls/hr 09/02/18 10:00 09/04/18 10:28 Levaquin 500mg/100ml IV 100 mls/hr Q24HR LIAN Administration Protocol Lorazepam 2 mg 09/01/18 21:56 09/04/18 06:36 Ativan IV 2 mg Q1H PRN Administration CIWA-Ar 8-15 Lorazepam 4 mg 09/01/18 21:56 Ativan IV Q1H PRN CIWA-Ar 16-25 Ondansetron HCl 4 mg 09/01/18 20:08 Zofran IV Q8H PRN Nausea And Vomiting Potassium Phos/Sodium Phos 1 each 09/02/18 22:00 09/04/18 05:28 Phos-Nak PO Not Given Q8HR LIAN Sodium Chloride 10 ml 09/01/18 22:00 09/04/18 10:30 Sodium Chloride Flush Syringe 10 Ml IV 10 ml BID LIAN Administration Sodium Chloride 10 ml 09/01/18 20:08 Sodium Chloride Flush Syringe 10 Ml IV PRN PRN LINE FLUSH
[2018-09-04] MEDS: APRESOLINE PO SCH (21:58)
[2018-09-05] MEDS: D5W 1,000 ML IV SCH ×2 (03:38→22:57)
[2018-09-05 05:52] LABS: Basophils # (Auto) 0.1 K/mm3 (0.0-0.1); Basophils % (Auto) 0.4 % (0.0-1.8); Eosinophils # (Auto) 0.3 K/mm3 (0.0-0.4); Eosinophils % (Auto) 2.7 % (0.0-4.3); Hematocrit 45.2 % (35.5-45.6); Hemoglobin 15.4 gm/dl (11.8-15.2); Lymphocytes # (Auto) 1.8 K/mm3 (1.2-5.4); Lymphocytes % (Auto) 15.7 % (13.4-35.0); Mean Corpuscular HGB Conc 34 % (32-34); Mean Corpuscular Volume 92 fl (84-94); Monocytes # (Auto) 1.1 K/mm3 (0.0-0.8); Monocytes % (Auto) 9.3 % (0.0-7.3); Platelet Count 225 K/mm3 (140-440); Red Blood Count 4.94 M/mm3 (3.65-5.03); Red Cell Distribution Width 14.7 % (13.2-15.2)
[2018-09-05 06:06] LABS: Calcium 10.1 mg/dL (8.4-10.2)
[2018-09-05] MEDS: PHOS-NAK PO SCH ×3 (06:14→22:56)
[2018-09-05] MEDS: APRESOLINE PO SCH ×3 (06:14→22:57)
[2018-09-05] MEDS: COLACE PO SCH ×2 (09:46→22:57)
[2018-09-05] MEDS: LOVENOX SUB-Q SCH (09:46)
[2018-09-05] MEDS: LEVAQUIN 500MG/100ML 500 MG/100 ML BAG IV SCH (09:46)
[2018-09-05] MEDS: BABY ASPIRIN PO SCH (09:46)
[2018-09-05] MEDS: SODIUM CHLORIDE FLUSH SYRINGE 10 ML IV SCH (09:46)
[2018-09-05] MEDS: ATIVAN IV PRN ×3 (11:53→17:11)
--- NOTE | 2018-09-05 13:04 | Vascular Lab Report ---
PROCEDURE: VL CAROTID DUPLEX BILAT HISTORY: possible TIA/AMS FINDINGS: Real-time ultrasound of the cervical arterial vasculature was performed using grayscale and color Doppler images. On the right, peak systolic velocity in the common carotid artery was 93 cm/s. In the internal caroti d it was 63 cm/s and in the external carotid 77 cm/s. Flow in the vertebral artery was antegrade at 5 9 cm/s. The ratio of flow of the internal carotid to the common carotid was 0.68 which is within norm al limits. There is plaque in the proximal internal carotid artery resulting in a short segment estim ated 20% stenosis. On the left, peak systolic velocity in the common carotid artery was 99 cm/s. In the internal carotid it was also 99 cm/s and in the external carotid 41 cm/s. Flow in the vertebral artery was antegrade at 27 cm/s. The ratio of flow of the internal carotid to the common carotid was 1.0 which is within n ormal limits. IMPRESSION: No stenosis of greater than 50% is seen in the cervical arterial vasculature This document is electronically signed by Dean Downing MD., September 05 2018 01:02:07 PM ET
--- NOTE | 2018-09-05 18:08 | Progress Note ---
Assessment and Plan Assessment and plan: --Metabolic encephalopathy; multifactorial, possible sepsis, CVA TIA Supportive care, CT negative for acute abnormality Carotid Doppler; less than 50% stenosis Check MRI of the brain[unable to obtain as no family available] --Possible TIA: Supportive care as, further neuro workup if needed --Community acquired pneumonia; empiric antibiotics Follow cultures and supportive care --Hypertensive urgency; present on admission Moderate control, add oral hydralazine, when necessary IV hydralazine Closely monitor --Acute sinusitis; on CT, empiric antibiotics Closely monitor --Hypokalemia; replace per protocol monitor levels --Hypernatremia;D5W, monitor electrolytes --Leukocytosis; secondary to possible pneumonia, acute sinusitis Trending down, continue antibiotics, follow cultures --Dyslipidemia; continue statin --DVT to prophylaxis; Lovenox --Full code Patient is encephalopathic, confused, pulling Restraints for safety --Discharge planning; Per case management. Social issues Monitor closely and adjust management as needed Stable to be transferred out of telemetry to [facility] /Med/surg History Interval history: Patient seen and examined Remains confused, unable to communicate intelligently Restraints for safety, not in acute distress Vitals reviewed Hospitalist Physical - Constitutional Vitals: Temp Pulse Resp BP Pulse Ox 97.6 F 111 H 16 130/91 92 09/05/18 17:50 09/05/18 17:50 09/05/18 17:50 09/05/18 17:50 09/05/18 17:50 General appearance: Present: no acute distress, well-nourished, other (agitated ,confused , restrained for safety) - EENT Eyes: Present: PERRL, EOM intact - Neck Neck: Present: supple, normal ROM - Respiratory Respiratory effort: normal Respiratory: negative: rales, rhonchi, wheezing - Cardiovascular Rhythm: regular Heart Sounds: Present: S1 & S2 - Extremities Extremities: no ischemia, No edema - Abdominal General gastrointestinal: soft, non-tender, non-distended, normal bowel sounds - Integumentary Integumentary: Present: clear, warm - Psychiatric Psychiatric: agitated, other (confused) - Neurologic Neurologic: moves all extremities Results - Labs CBC & Chem 7: 09/05/18 05:25 09/05/18 05:25 Labs: Laboratory Last Values WBC 11.5 K/mm3 (4.5-11.0) H 09/05/18 05:25 RBC 4.94 M/mm3 (3.65-5.03) 09/05/18 05:25 Hgb 15.4 gm/dl (11.8-15.2) H 09/05/18 05:25 Hct 45.2 % (35.5-45.6) 09/05/18 05:25 MCV 92 fl (84-94) 09/05/18 05:25 MCH 31 pg (28-32) 09/05/18 05:25 MCHC 34 % (32-34) 09/05/18 05:25 RDW 14.7 % (13.2-15.2) 09/05/18 05:25 Plt Count 225 K/mm3 (140-440) 09/05/18 05:25 Lymph % (Auto) 15.7 % (13.4-35.0) 09/05/18 05:25 [place] % (Auto) 9.3 % (0.0-7.3) H 09/05/18 05:25 Eos % (Auto) 2.7 % (0.0-4.3) 09/05/18 05:25 Baso % (Auto) 0.4 % (0.0-1.8) 09/05/18 05:25 Lymph # 1.8 K/mm3 (1.2-5.4) 09/05/18 05:25 [place] # 1.1 K/mm3 (0.0-0.8) H 09/05/18 05:25 Eos # 0.3 K/mm3 (0.0-0.4) 09/05/18 05:25 Baso # 0.1 K/mm3 (0.0-0.1) 09/05/18 05:25 Seg Neutrophils % 71.9 % (40.0-70.0) H 09/05/18 05:25 Seg Neutrophils # 8.3 K/mm3 (1.8-7.7) H 09/05/18 05:25 PT 13.1 Sec. (12.2-14.9) 09/01/18 Unknown INR 1.02 (0.87-1.13) 09/01/18 Unknown APTT 29.6 Sec. (24.2-36.6) 09/01/18 Unknown Sodium 147 mmol/L (137-145) H 09/05/18 05:25 Potassium 3.5 mmol/L (3.6-5.0) L 09/05/18 05:25 Chloride 110.4 mmol/L (98-107) H 09/05/18 05:25 Carbon Dioxide 21 mmol/L (22-30) L 09/05/18 05:25 19 mmol/L 09/05/18 05:25 BUN 31 mg/dL (9-20) H 09/05/18 05:25 1.3 mg/dL (0.8-1.5) 09/05/18 05:25 Estimated GFR 55 ml/min 09/05/18 05:25 24 % 09/05/18 05:25 Glucose 135 mg/dL (75-100) H 09/05/18 05:25 Lactic Acid 1.40 mmol/L (0.7-2.0) 09/01/18 16:08 Calcium 10.1 mg/dL (8.4-10.2) 09/05/18 05:25 Phosphorus 3.30 mg/dL (2.5-4.5) 09/04/18 05:35 Magnesium 2.70 mg/dL (1.7-2.3) H 09/05/18 05:25 0.60 mg/dL (0.1-1.2) 09/01/18 Unknown AST 21 units/L (5-40) 09/01/18 Unknown ALT 26 units/L (7-56) 09/01/18 Unknown 64 units/L (35-129) 09/01/18 Unknown 7.0 g/dL (6.3-8.2) 09/01/18 Unknown 4.4 g/dL (3.9-5) 09/01/18 Unknown 1.7 % 09/01/18 Unknown Triglycerides 87 mg/dL (2-149) 09/02/18 05:32 Cholesterol 195 mg/dL (50-199) 09/02/18 05:32 115 mg/dL (50-130) 09/02/18 05:32 72 mg/dL (40-59) H 09/02/18 05:32 2.70 % 09/02/18 05:32 Yellow (Yellow) 09/01/18 17:50 Clear (Clear) 09/01/18 17:50 7.0 (5.0-7.0) 09/01/18 17:50 Ur Specific [place] 1.012 (1.003-1.030) 09/01/18 17:50 100 mg/dl mg/dL (Negative) 09/01/18 17:50 Neg mg/dL (Negative) 09/01/18 17:50 Tr mg/dL (Negative) 09/01/18 17:50 Neg (Negative) 09/01/18 17:50 Neg (Negative) 09/01/18 17:50 Neg (Negative) 09/01/18 17:50 2.0 mg/dL (<2.0) 09/01/18 17:50 Ur Leukocyte Esterase Neg (Negative) 09/01/18 17:50 < 1.0 /HPF (0.0-6.0) 09/01/18 17:50 2.0 /HPF (0.0-6.0) 09/01/18 17:50 Presumptive negative 09/01/18 17:50 Presumptive negative 09/01/18 17:50 Ur Barbiturates Screen Presumptive negative 09/01/18 17:50 Ur Phencyclidine Scrn Presumptive negative 09/01/18 17:50 Ur Amphetamines Screen Presumptive negative 09/01/18 17:50 U Benzodiazepines Scrn Presumptive negative 09/01/18 17:50 Presumptive negative 09/01/18 17:50 U Marijuana (THC) Screen Presumptive negative 09/01/18 17:50 Disclamer 09/01/18 17:50 Plasma/Serum Alcohol < 0.01 % (0-0.07) 09/01/18 19:22 Active Medications - Current Medications Current Medications: Generic Name Dose Route Start Last Admin Trade Name Freq PRN Reason Stop Dose Admin Acetaminophen 650 mg 09/01/18 20:08 Tylenol PO Q4H PRN Pain MILD(1-3)/Fever >100.5/HAYDEN Aspirin 81 mg 09/02/18 10:00 09/05/18 09:46 Baby Aspirin PO 81 mg QDAY LIAN Administration Atorvastatin Calcium 20 mg 09/01/18 22:00 09/04/18 21:58 Lipitor PO 20 mg QHS LIAN Administration Docusate Sodium 100 mg 09/01/18 22:00 09/05/18 09:46 Colace PO 100 mg BID LIAN Administration Enoxaparin Sodium 40 mg 09/02/18 10:00 09/05/18 09:46 Lovenox SUB-Q 40 mg QDAY LIAN Administration Hydralazine HCl 10 mg 09/01/18 20:14 09/04/18 16:16 Apresoline IV 10 mg Q4H PRN Administration Blood Pressure Hydralazine HCl 25 mg 09/04/18 22:00 09/05/18 15:12 Apresoline PO 25 mg Q8HR LIAN Administration Levofloxacin/Dextrose 500 mg in 100 mls @ 100 mls/hr 09/02/18 10:00 09/05/18 09:46 Levaquin 500mg/100ml IV 100 mls/hr Q24HR LIAN Administration Protocol Dextrose 1,000 mls @ 50 mls/hr 09/04/18 20:00 09/05/18 03:38 D5w IV 50 mls/hr DIRECT LIAN Administration Lorazepam 2 mg 09/01/18 21:56 09/05/18 14:47 Ativan IV 2 mg Q1H PRN Administration CIWA-Ar 8-15 Lorazepam 4 mg 09/01/18 21:56 09/05/18 17:11 Ativan IV 4 mg Q1H PRN Administration CIWA-Ar 16-25 Ondansetron HCl 4 mg 09/01/18 20:08 Zofran IV Q8H PRN Nausea And Vomiting Potassium Phos/Sodium Phos 1 each 09/02/18 22:00 09/05/18 14:47 Phos-Nak PO 1 each Q8HR LIAN Administration Sodium Chloride 10 ml 09/01/18 22:00 09/05/18 09:46 Sodium Chloride Flush Syringe 10 Ml IV 10 ml BID LIAN Administration Sodium Chloride 10 ml 09/01/18 20:08 Sodium Chloride Flush Syringe 10 Ml IV PRN PRN LINE FLUSH
[2018-09-06] MEDS: SODIUM CHLORIDE FLUSH SYRINGE 10 ML IV SCH ×3 (00:13→23:27)
[2018-09-06 05:40] LABS: Basophils # (Auto) 0.1 K/mm3 (0.0-0.1); Basophils % (Auto) 0.5 % (0.0-1.8); Eosinophils # (Auto) 0.4 K/mm3 (0.0-0.4); Eosinophils % (Auto) 3.1 % (0.0-4.3); Hematocrit 44.1 % (35.5-45.6); Hemoglobin 15.4 gm/dl (11.8-15.2); Lymphocytes # (Auto) 2.2 K/mm3 (1.2-5.4); Lymphocytes % (Auto) 16.6 % (13.4-35.0); Mean Corpuscular HGB Conc 35 % (32-34); Mean Corpuscular Volume 90 fl (84-94); Monocytes # (Auto) 1.2 K/mm3 (0.0-0.8); Monocytes % (Auto) 8.8 % (0.0-7.3); Platelet Count 217 K/mm3 (140-440); Red Blood Count 4.89 M/mm3 (3.65-5.03); Red Cell Distribution Width 14.2 % (13.2-15.2)
[2018-09-06] MEDS: PHOS-NAK PO SCH ×3 (05:41→23:26)
[2018-09-06] MEDS: APRESOLINE PO SCH ×3 (05:42→23:26)
[2018-09-06 06:06] LABS: Calcium 10.3 mg/dL (8.4-10.2)
[2018-09-06] MEDS: LOVENOX SUB-Q SCH (09:21)
[2018-09-06] MEDS: LEVAQUIN PO SCH (09:23)
[2018-09-06] MEDS: COLACE PO SCH ×2 (09:23→23:26)
[2018-09-06] MEDS: BABY ASPIRIN PO SCH (09:23)
--- NOTE | 2018-09-06 12:02 | Progress Note ---
Assessment and Plan Assessment and plan: --Possible TIA: Supportive care as, further neuro workup if needed --Metabolic encephalopathy; multifactorial, possible sepsis, CVA TIA Supportive care, CT negative for acute abnormality Carotid Doppler; less than 50% stenosis Check MRI of the brain[unable to obtain as no family available] --Community acquired pneumonia; empiric antibiotics Follow cultures and supportive care --Hypertensive urgency; present on admission Moderate control, add oral hydralazine, when necessary IV hydralazine Closely monitor --Acute sinusitis; on CT, empiric antibiotics Closely monitor --Hypokalemia; replace per protocol monitor levels --Hypernatremia;D5W, monitor electrolytes --Leukocytosis; secondary to possible pneumonia, acute sinusitis Trending down, continue antibiotics, follow cultures --Dyslipidemia; continue statin --DVT to prophylaxis; Lovenox --Full code --Discharge planning; Per case management. Social issues History Interval history: Patient seen and examined medical records reviewed Patient is pleasantly confused Restraint for safety No family available Vital signs noted Hospitalist Physical - Constitutional Vitals: Temp Pulse Resp BP Pulse Ox 98.1 F 104 H 18 142/93 95 09/06/18 07:42 09/06/18 07:42 09/06/18 09:03 09/06/18 07:42 09/06/18 09:03 General appearance: Present: no acute distress, well-nourished, other (agitated ,confused , restrained for safety) - EENT Eyes: Present: PERRL, EOM intact - Neck Neck: Present: supple, normal ROM - Respiratory Respiratory effort: normal Respiratory: bilateral: diminished, negative: rales, rhonchi, wheezing - Cardiovascular Rhythm: regular Heart Sounds: Present: S1 & S2 - Extremities Extremities: no ischemia, No edema - Abdominal General gastrointestinal: soft, non-tender, non-distended, normal bowel sounds - Integumentary Integumentary: Present: clear, warm - Psychiatric Psychiatric: agitated, other (confused) - Neurologic Neurologic: moves all extremities Results - Labs CBC & Chem 7: 09/06/18 05:25 09/06/18 05:25 Labs: Laboratory Last Values WBC 13.3 K/mm3 (4.5-11.0) H 09/06/18 05:25 RBC 4.89 M/mm3 (3.65-5.03) 09/06/18 05:25 Hgb 15.4 gm/dl (11.8-15.2) H 09/06/18 05:25 Hct 44.1 % (35.5-45.6) 09/06/18 05:25 MCV 90 fl (84-94) 09/06/18 05:25 MCH 31 pg (28-32) 09/06/18 05:25 MCHC 35 % (32-34) H 09/06/18 05:25 RDW 14.2 % (13.2-15.2) 09/06/18 05:25 Plt Count 217 K/mm3 (140-440) 09/06/18 05:25 Lymph % (Auto) 16.6 % (13.4-35.0) 09/06/18 05:25 [place] % (Auto) 8.8 % (0.0-7.3) H 09/06/18 05:25 Eos % (Auto) 3.1 % (0.0-4.3) 09/06/18 05:25 Baso % (Auto) 0.5 % (0.0-1.8) 09/06/18 05:25 Lymph # 2.2 K/mm3 (1.2-5.4) 09/06/18 05:25 [place] # 1.2 K/mm3 (0.0-0.8) H 09/06/18 05:25 Eos # 0.4 K/mm3 (0.0-0.4) 09/06/18 05:25 Baso # 0.1 K/mm3 (0.0-0.1) 09/06/18 05:25 Seg Neutrophils % 71.0 % (40.0-70.0) H 09/06/18 05:25 Seg Neutrophils # 9.4 K/mm3 (1.8-7.7) H 09/06/18 05:25 PT 13.1 Sec. (12.2-14.9) 09/01/18 Unknown INR 1.02 (0.87-1.13) 09/01/18 Unknown APTT 29.6 Sec. (24.2-36.6) 09/01/18 Unknown Sodium 146 mmol/L (137-145) H 09/06/18 05:25 Potassium 3.9 mmol/L (3.6-5.0) 09/06/18 05:25 Chloride 110.7 mmol/L (98-107) H 09/06/18 05:25 Carbon Dioxide 20 mmol/L (22-30) L 09/06/18 05:25 19 mmol/L 09/06/18 05:25 BUN 31 mg/dL (9-20) H 09/06/18 05:25 1.3 mg/dL (0.8-1.5) 09/06/18 05:25 Estimated GFR 55 ml/min 09/06/18 05:25 24 % 09/06/18 05:25 Glucose 142 mg/dL (75-100) H 09/06/18 05:25 Lactic Acid 1.40 mmol/L (0.7-2.0) 09/01/18 16:08 Calcium 10.3 mg/dL (8.4-10.2) H 09/06/18 05:25 Phosphorus 3.30 mg/dL (2.5-4.5) 09/04/18 05:35 Magnesium 2.70 mg/dL (1.7-2.3) H 09/05/18 05:25 0.60 mg/dL (0.1-1.2) 09/01/18 Unknown AST 21 units/L (5-40) 09/01/18 Unknown ALT 26 units/L (7-56) 09/01/18 Unknown 64 units/L (35-129) 09/01/18 Unknown 7.0 g/dL (6.3-8.2) 09/01/18 Unknown 4.4 g/dL (3.9-5) 09/01/18 Unknown 1.7 % 09/01/18 Unknown Triglycerides 87 mg/dL (2-149) 09/02/18 05:32 Cholesterol 195 mg/dL (50-199) 09/02/18 05:32 115 mg/dL (50-130) 09/02/18 05:32 72 mg/dL (40-59) H 09/02/18 05:32 2.70 % 09/02/18 05:32 Yellow (Yellow) 09/01/18 17:50 Clear (Clear) 09/01/18 17:50 7.0 (5.0-7.0) 09/01/18 17:50 Ur Specific [place] 1.012 (1.003-1.030) 09/01/18 17:50 100 mg/dl mg/dL (Negative) 09/01/18 17:50 Neg mg/dL (Negative) 09/01/18 17:50 Tr mg/dL (Negative) 09/01/18 17:50 Neg (Negative) 09/01/18 17:50 Neg (Negative) 09/01/18 17:50 Neg (Negative) 09/01/18 17:50 2.0 mg/dL (<2.0) 09/01/18 17:50 Ur Leukocyte Esterase Neg (Negative) 09/01/18 17:50 < 1.0 /HPF (0.0-6.0) 09/01/18 17:50 2.0 /HPF (0.0-6.0) 09/01/18 17:50 Presumptive negative 09/01/18 17:50 Presumptive negative 09/01/18 17:50 Ur Barbiturates Screen Presumptive negative 09/01/18 17:50 Ur Phencyclidine Scrn Presumptive negative 09/01/18 17:50 Ur Amphetamines Screen Presumptive negative 09/01/18 17:50 U Benzodiazepines Scrn Presumptive negative 09/01/18 17:50 Presumptive negative 09/01/18 17:50 U Marijuana (THC) Screen Presumptive negative 09/01/18 17:50 Disclamer 09/01/18 17:50 Plasma/Serum Alcohol < 0.01 % (0-0.07) 09/01/18 19:22 Active Medications - Current Medications Current Medications: Generic Name Dose Route Start Last Admin Trade Name Freq PRN Reason Stop Dose Admin Acetaminophen 650 mg 09/01/18 20:08 Tylenol PO Q4H PRN Pain MILD(1-3)/Fever >100.5/HAYDEN Aspirin 81 mg 09/02/18 10:00 09/06/18 09:23 Baby Aspirin PO 81 mg QDAY LINA Administration Atorvastatin Calcium 20 mg 09/01/18 22:00 09/05/18 22:57 Lipitor PO 20 mg QHS LIAN Administration Docusate Sodium 100 mg 09/01/18 22:00 09/06/18 09:23 Colace PO 100 mg BID LIAN Administration Enoxaparin Sodium 40 mg 09/02/18 10:00 09/06/18 09:21 Lovenox SUB-Q 40 mg QDAY LIAN Administration Hydralazine HCl 10 mg 09/01/18 20:14 09/04/18 16:16 Apresoline IV 10 mg Q4H PRN Administration Blood Pressure Hydralazine HCl 25 mg 09/04/18 22:00 09/06/18 05:42 Apresoline PO 25 mg Q8HR LIAN Administration Dextrose 1,000 mls @ 75 mls/hr 09/04/18 20:00 09/05/18 22:57 D5w IV 50 mls/hr DIRECT LIAN Administration Levofloxacin 500 mg 09/06/18 10:00 09/06/18 09:23 Levaquin PO 500 mg Q24HR LIAN Administration Lorazepam 2 mg 09/01/18 21:56 09/05/18 14:47 Ativan IV 2 mg Q1H PRN Administration CIWA-Ar 8-15 Lorazepam 4 mg 09/01/18 21:56 09/05/18 17:11 Ativan IV 4 mg Q1H PRN Administration CIWA-Ar 16-25 Ondansetron HCl 4 mg 09/01/18 20:08 Zofran IV Q8H PRN Nausea And Vomiting Potassium Phos/Sodium Phos 1 each 09/02/18 22:00 09/06/18 05:41 Phos-Nak PO 1 each Q8HR LIAN Administration Sodium Chloride 10 ml 09/01/18 22:00 09/06/18 09:24 Sodium Chloride Flush Syringe 10 Ml IV 10 ml BID LIAN Administration Sodium Chloride 10 ml 09/01/18 20:08 Sodium Chloride Flush Syringe 10 Ml IV PRN PRN LINE FLUSH
[2018-09-06] MEDS: D5W 1,000 ML IV SCH (14:35)
[2018-09-07] MEDS: APRESOLINE PO SCH ×3 (05:52→23:53)
[2018-09-07] MEDS: PHOS-NAK PO SCH ×3 (06:00→23:54)
[2018-09-07 06:21] LABS: Basophils # (Auto) 0.1 K/mm3 (0.0-0.1); Eosinophils # (Auto) 0.2 K/mm3 (0.0-0.4); Eosinophils % (Auto) 1.6 % (0.0-4.3); Hematocrit 43.9 % (35.5-45.6); Hemoglobin 15.3 gm/dl (11.8-15.2); Lymphocytes # (Auto) 1.4 K/mm3 (1.2-5.4); Lymphocytes % (Auto) 10.2 % (13.4-35.0); Mean Corpuscular HGB Conc 35 % (32-34); Mean Corpuscular Volume 90 fl (84-94); Monocytes # (Auto) 1.1 K/mm3 (0.0-0.8); Monocytes % (Auto) 8.2 % (0.0-7.3); Platelet Count 220 K/mm3 (140-440); Red Blood Count 4.88 M/mm3 (3.65-5.03); Red Cell Distribution Width 14.7 % (13.2-15.2)
[2018-09-07 06:39] LABS: Calcium 9.9 mg/dL (8.4-10.2)
[2018-09-07] MEDS: LOVENOX SUB-Q SCH (09:30)
[2018-09-07] MEDS: LEVAQUIN PO SCH (09:30)
[2018-09-07] MEDS: SODIUM CHLORIDE FLUSH SYRINGE 10 ML IV SCH ×2 (09:30→23:54)
[2018-09-07] MEDS: COLACE PO SCH ×2 (09:30→23:53)
[2018-09-07] MEDS: BABY ASPIRIN PO SCH (09:30)
--- NOTE | 2018-09-07 14:13 | Progress Note ---
Assessment and Plan Assessment and plan: --Possible TIA: Supportive care as, further neuro workup if needed --Metabolic encephalopathy; multifactorial, possible sepsis, CVA TIA Supportive care, CT negative for acute abnormality Carotid Doppler; less than 50% stenosis Check MRI of the brain[unable to obtain as no family available] --Community acquired pneumonia; empiric antibiotics Follow cultures and supportive care --Sepsis secondary to community acquired pneumonia --Hypertensive urgency; present on admission Moderate control, add oral hydralazine, when necessary IV hydralazine Closely monitor --Acute sinusitis; on CT, empiric antibiotics Closely monitor --Hypokalemia; replace per protocol monitor levels --Hypernatremia;D5W, monitor electrolytes --Leukocytosis; secondary to possible pneumonia, acute sinusitis Trending down, continue antibiotics, follow cultures --Dyslipidemia; continue statin --DVT to prophylaxis; Lovenox --Full code --Discharge planning; could not find family contact information Continue current management History Interval history: Patient seen and examined this morning medical records reviewed Patient is more alert today, responding to simple questions appropriately Restraints for safety as patient is getting In bed and pulling Patient looks and feels better Not in acute distress Vital signs noted Hospitalist Physical - Constitutional Vitals: Temp Pulse Resp BP Pulse Ox 98.8 F 81 20 149/65 95 09/07/18 08:06 09/07/18 08:06 09/07/18 08:06 09/07/18 08:06 09/07/18 08:23 General appearance: Present: no acute distress, well-nourished, other (confused at times) - EENT Eyes: Present: PERRL, EOM intact - Neck Neck: Present: supple, normal ROM - Respiratory Respiratory effort: normal Respiratory: bilateral: diminished, rales, negative: rhonchi, wheezing - Cardiovascular Rhythm: regular Heart Sounds: Present: S1 & S2 - Extremities Extremities: no ischemia, No edema - Abdominal General gastrointestinal: soft, non-tender, non-distended, normal bowel sounds - Integumentary Integumentary: Present: clear, warm - Psychiatric Psychiatric: agitated, other (confused) - Neurologic Neurologic: moves all extremities Results - Labs CBC & Chem 7: 09/08/18 05:29 09/08/18 05:29 Labs: Laboratory Last Values WBC 13.3 K/mm3 (4.5-11.0) H 09/07/18 06:08 RBC 4.88 M/mm3 (3.65-5.03) 09/07/18 06:08 Hgb 15.3 gm/dl (11.8-15.2) H 09/07/18 06:08 Hct 43.9 % (35.5-45.6) 09/07/18 06:08 MCV 90 fl (84-94) 09/07/18 06:08 MCH 31 pg (28-32) 09/07/18 06:08 MCHC 35 % (32-34) H 09/07/18 06:08 RDW 14.7 % (13.2-15.2) 09/07/18 06:08 Plt Count 220 K/mm3 (140-440) 09/07/18 06:08 Lymph % (Auto) 10.2 % (13.4-35.0) L 09/07/18 06:08 [place] % (Auto) 8.2 % (0.0-7.3) H 09/07/18 06:08 Eos % (Auto) 1.6 % (0.0-4.3) 09/07/18 06:08 Baso % (Auto) 1.0 % (0.0-1.8) 09/07/18 06:08 Lymph # 1.4 K/mm3 (1.2-5.4) 09/07/18 06:08 [place] # 1.1 K/mm3 (0.0-0.8) H 09/07/18 06:08 Eos # 0.2 K/mm3 (0.0-0.4) 09/07/18 06:08 Baso # 0.1 K/mm3 (0.0-0.1) 09/07/18 06:08 Seg Neutrophils % 79.0 % (40.0-70.0) H 09/07/18 06:08 Seg Neutrophils # 10.5 K/mm3 (1.8-7.7) H 09/07/18 06:08 PT 13.1 Sec. (12.2-14.9) 09/01/18 Unknown INR 1.02 (0.87-1.13) 09/01/18 Unknown APTT 29.6 Sec. (24.2-36.6) 09/01/18 Unknown Sodium 141 mmol/L (137-145) 09/07/18 06:08 Potassium 3.6 mmol/L (3.6-5.0) 09/07/18 06:08 Chloride 104.8 mmol/L (98-107) 09/07/18 06:08 Carbon Dioxide 19 mmol/L (22-30) L 09/07/18 06:08 21 mmol/L 09/07/18 06:08 BUN 27 mg/dL (9-20) H 09/07/18 06:08 1.3 mg/dL (0.8-1.5) 09/07/18 06:08 Estimated GFR 55 ml/min 09/07/18 06:08 21 % 09/07/18 06:08 Glucose 132 mg/dL (75-100) H 09/07/18 06:08 Lactic Acid 1.40 mmol/L (0.7-2.0) 09/01/18 16:08 Calcium 9.9 mg/dL (8.4-10.2) 09/07/18 06:08 Phosphorus 3.30 mg/dL (2.5-4.5) 09/04/18 05:35 Magnesium 2.70 mg/dL (1.7-2.3) H 09/05/18 05:25 0.60 mg/dL (0.1-1.2) 09/01/18 Unknown AST 21 units/L (5-40) 09/01/18 Unknown ALT 26 units/L (7-56) 09/01/18 Unknown 64 units/L (35-129) 09/01/18 Unknown 7.0 g/dL (6.3-8.2) 09/01/18 Unknown 4.4 g/dL (3.9-5) 09/01/18 Unknown 1.7 % 09/01/18 Unknown Triglycerides 87 mg/dL (2-149) 09/02/18 05:32 Cholesterol 195 mg/dL (50-199) 09/02/18 05:32 115 mg/dL (50-130) 09/02/18 05:32 72 mg/dL (40-59) H 09/02/18 05:32 2.70 % 09/02/18 05:32 Yellow (Yellow) 09/01/18 17:50 Clear (Clear) 09/01/18 17:50 7.0 (5.0-7.0) 09/01/18 17:50 Ur Specific [place] 1.012 (1.003-1.030) 09/01/18 17:50 100 mg/dl mg/dL (Negative) 09/01/18 17:50 Neg mg/dL (Negative) 09/01/18 17:50 Tr mg/dL (Negative) 09/01/18 17:50 Neg (Negative) 09/01/18 17:50 Neg (Negative) 09/01/18 17:50 Neg (Negative) 09/01/18 17:50 2.0 mg/dL (<2.0) 09/01/18 17:50 Ur Leukocyte Esterase Neg (Negative) 09/01/18 17:50 < 1.0 /HPF (0.0-6.0) 09/01/18 17:50 2.0 /HPF (0.0-6.0) 09/01/18 17:50 Presumptive negative 09/01/18 17:50 Presumptive negative 09/01/18 17:50 Ur Barbiturates Screen Presumptive negative 09/01/18 17:50 Ur Phencyclidine Scrn Presumptive negative 09/01/18 17:50 Ur Amphetamines Screen Presumptive negative 09/01/18 17:50 U Benzodiazepines Scrn Presumptive negative 09/01/18 17:50 Presumptive negative 09/01/18 17:50 U Marijuana (THC) Screen Presumptive negative 09/01/18 17:50 Disclamer 09/01/18 17:50 Plasma/Serum Alcohol < 0.01 % (0-0.07) 09/01/18 19:22 Active Medications - Current Medications Current Medications: Generic Name Dose Route Start Last Admin Trade Name Freq PRN Reason Stop Dose Admin Acetaminophen 650 mg 09/01/18 20:08 Tylenol PO Q4H PRN Pain MILD(1-3)/Fever >100.5/HAYDEN Aspirin 81 mg 09/02/18 10:00 09/07/18 09:30 Baby Aspirin PO 81 mg QDAY LIAN Administration Atorvastatin Calcium 20 mg 09/01/18 22:00 09/06/18 23:26 Lipitor PO 20 mg QHS LIAN Administration Docusate Sodium 100 mg 09/01/18 22:00 09/07/18 09:30 Colace PO 100 mg BID LIAN Administration Enoxaparin Sodium 40 mg 09/02/18 10:00 09/07/18 09:30 Lovenox SUB-Q 40 mg QDAY LIAN Administration Hydralazine HCl 10 mg 09/01/18 20:14 09/04/18 16:16 Apresoline IV 10 mg Q4H PRN Administration Blood Pressure Hydralazine HCl 25 mg 09/04/18 22:00 09/07/18 05:52 Apresoline PO 25 mg Q8HR LIAN Administration Dextrose 1,000 mls @ 75 mls/hr 09/04/18 20:00 09/06/18 14:35 D5w IV 50 mls/hr DIRECT LIAN Administration Levofloxacin 500 mg 09/06/18 10:00 09/07/18 09:30 Levaquin PO 500 mg Q24HR LIAN Administration Lorazepam 2 mg 09/01/18 21:56 09/05/18 14:47 Ativan IV 2 mg Q1H PRN Administration CIWA-Ar 8-15 Lorazepam 4 mg 09/01/18 21:56 09/05/18 17:11 Ativan IV 4 mg Q1H PRN Administration CIWA-Ar 16-25 Ondansetron HCl 4 mg 09/01/18 20:08 Zofran IV Q8H PRN Nausea And Vomiting Potassium Phos/Sodium Phos 1 each 09/02/18 22:00 09/07/18 06:00 Phos-Nak PO 1 each Q8HR LIAN Administration Sodium Chloride 10 ml 09/01/18 22:00 09/07/18 09:30 Sodium Chloride Flush Syringe 10 Ml IV 10 ml BID LIAN Administration Sodium Chloride 10 ml 09/01/18 20:08 Sodium Chloride Flush Syringe 10 Ml IV PRN PRN LINE FLUSH
[2018-09-07] MEDS: D5W 1,000 ML IV SCH (19:43)
[2018-09-08] MEDS: APRESOLINE PO SCH ×3 (06:02→23:08)
[2018-09-08] MEDS: PHOS-NAK PO SCH ×3 (06:02→23:09)
[2018-09-08 06:04] LABS: Basophils # (Auto) 0.1 K/mm3 (0.0-0.1); Basophils % (Auto) 0.4 % (0.0-1.8); Eosinophils % (Auto) 0.2 % (0.0-4.3); Hematocrit 38.9 % (35.5-45.6); Hemoglobin 13.6 gm/dl (11.8-15.2); Lymphocytes % (Auto) 6.3 % (13.4-35.0); Mean Corpuscular HGB Conc 35 % (32-34); Mean Corpuscular Volume 90 fl (84-94); Monocytes # (Auto) 1.2 K/mm3 (0.0-0.8); Monocytes % (Auto) 7.2 % (0.0-7.3); Platelet Count 205 K/mm3 (140-440); Red Cell Distribution Width 14.3 % (13.2-15.2)
[2018-09-08 06:31] LABS: BUN/Creatinine Ratio 18; Blood Urea Nitrogen 22 mg/dL (9-20); Calcium 9.3 mg/dL (8.4-10.2); Hemolysis Index 4
[2018-09-08] MEDS: LOVENOX SUB-Q SCH (09:07)
[2018-09-08] MEDS: LEVAQUIN PO SCH (09:07)
[2018-09-08] MEDS: BABY ASPIRIN PO SCH (09:07)
[2018-09-08] MEDS: COLACE PO SCH ×2 (09:07→23:08)
[2018-09-08] MEDS: SODIUM CHLORIDE FLUSH SYRINGE 10 ML IV SCH (09:08)
[2018-09-08] MEDS: D5W 1,000 ML IV SCH (09:12)
--- NOTE | 2018-09-08 14:27 | Progress Note ---
Assessment and Plan Assessment and plan: --Metabolic encephalopathy; multifactorial, sepsis, possible TIA Dementia . Resolved Patient is alert awake oriented today CT negative for acute abnormality Carotid Doppler; less than 50% stenosis Check MRI of the brain[unable to obtain as no family available] --Community acquired pneumonia; present on admission empiric antibiotics,culturesnegative so far , f/u chest x-ray --Sepsis secondary to community acquired pneumonia --Hypertensive urgency; present on admission Moderate control, add oral hydralazine, when necessary IV hydralazine --Acute sinusitis; on CT, empiric antibiotics --Hypokalemia; replace per protocol monitor levels --Hypernatremia;D5W, monitor electrolytes --Leukocytosis; secondary to possible pneumonia, acute sinusitis Trending down, continue antibiotics, follow cultures --Dyslipidemia; continue statin --DVT to prophylaxis; Lovenox --Full code --Physical therapy occupational therapy --Discharge planning; possible subacute/SNF placement Plan of care is reviewed with the patient and his neighbor at the bedside Also discussed with case management and patient's nurse History Interval history: Patient seen and examined medical records reviewed Patient is alert awake oriented today off restrains No new complaints Vital signs noted Hospitalist Physical - Constitutional Vitals: Temp Pulse Resp BP Pulse Ox 98.5 F 80 20 124/73 95 09/08/18 13:08 09/08/18 14:16 09/08/18 13:08 09/08/18 14:16 09/08/18 13:08 General appearance: Present: no acute distress, well-nourished, other (alert awake oriented today) - EENT Eyes: Present: PERRL, EOM intact - Neck Neck: Present: supple, normal ROM - Respiratory Respiratory effort: normal Respiratory: bilateral: diminished, negative: rales, rhonchi, wheezing - Cardiovascular Rhythm: regular Heart Sounds: Present: S1 & S2 - Extremities Extremities: no ischemia, No edema - Abdominal General gastrointestinal: soft, non-tender, non-distended, normal bowel sounds - Integumentary Integumentary: Present: clear, warm - Psychiatric Psychiatric: appropriate mood/affect, cooperative - Neurologic Neurologic: moves all extremities Results - Labs CBC & Chem 7: 09/08/18 05:29 09/08/18 05:29 Labs: Laboratory Last Values WBC 16.4 K/mm3 (4.5-11.0) H 09/08/18 05:29 RBC 4.30 M/mm3 (3.65-5.03) 09/08/18 05:29 Hgb 13.6 gm/dl (11.8-15.2) 09/08/18 05:29 Hct 38.9 % (35.5-45.6) 09/08/18 05:29 MCV 90 fl (84-94) 09/08/18 05:29 MCH 32 pg (28-32) 09/08/18 05:29 MCHC 35 % (32-34) H 09/08/18 05:29 RDW 14.3 % (13.2-15.2) 09/08/18 05:29 Plt Count 205 K/mm3 (140-440) 09/08/18 05:29 Lymph % (Auto) 6.3 % (13.4-35.0) L 09/08/18 05:29 [place] % (Auto) 7.2 % (0.0-7.3) 09/08/18 05:29 Eos % (Auto) 0.2 % (0.0-4.3) 09/08/18 05:29 Baso % (Auto) 0.4 % (0.0-1.8) 09/08/18 05:29 Lymph # 1.0 K/mm3 (1.2-5.4) L 09/08/18 05:29 [place] # 1.2 K/mm3 (0.0-0.8) H 09/08/18 05:29 Eos # 0.0 K/mm3 (0.0-0.4) 09/08/18 05:29 Baso # 0.1 K/mm3 (0.0-0.1) 09/08/18 05:29 Seg Neutrophils % 85.9 % (40.0-70.0) H 09/08/18 05:29 Seg Neutrophils # 14.1 K/mm3 (1.8-7.7) H 09/08/18 05:29 PT 13.1 Sec. (12.2-14.9) 09/01/18 Unknown INR 1.02 (0.87-1.13) 09/01/18 Unknown APTT 29.6 Sec. (24.2-36.6) 09/01/18 Unknown Sodium 135 mmol/L (137-145) L 09/08/18 05:29 Potassium 3.6 mmol/L (3.6-5.0) 09/08/18 05:29 Chloride 99.3 mmol/L (98-107) 09/08/18 05:29 Carbon Dioxide 22 mmol/L (22-30) 09/08/18 05:29 17 mmol/L 09/08/18 05:29 BUN 22 mg/dL (9-20) H 09/08/18 05:29 1.2 mg/dL (0.8-1.5) 09/08/18 05:29 Estimated GFR > 60 ml/min 09/08/18 05:29 18 % 09/08/18 05:29 Glucose 156 mg/dL (75-100) H 09/08/18 05:29 Lactic Acid 1.40 mmol/L (0.7-2.0) 09/01/18 16:08 Calcium 9.3 mg/dL (8.4-10.2) 09/08/18 05:29 Phosphorus 3.30 mg/dL (2.5-4.5) 09/04/18 05:35 Magnesium 2.70 mg/dL (1.7-2.3) H 09/05/18 05:25 0.60 mg/dL (0.1-1.2) 09/01/18 Unknown AST 21 units/L (5-40) 09/01/18 Unknown ALT 26 units/L (7-56) 09/01/18 Unknown 64 units/L (35-129) 09/01/18 Unknown 7.0 g/dL (6.3-8.2) 09/01/18 Unknown 4.4 g/dL (3.9-5) 09/01/18 Unknown 1.7 % 09/01/18 Unknown Triglycerides 87 mg/dL (2-149) 09/02/18 05:32 Cholesterol 195 mg/dL (50-199) 09/02/18 05:32 115 mg/dL (50-130) 09/02/18 05:32 72 mg/dL (40-59) H 09/02/18 05:32 2.70 % 09/02/18 05:32 Yellow (Yellow) 09/01/18 17:50 Clear (Clear) 09/01/18 17:50 7.0 (5.0-7.0) 09/01/18 17:50 Ur Specific [place] 1.012 (1.003-1.030) 09/01/18 17:50 100 mg/dl mg/dL (Negative) 09/01/18 17:50 Neg mg/dL (Negative) 09/01/18 17:50 Tr mg/dL (Negative) 09/01/18 17:50 Neg (Negative) 09/01/18 17:50 Neg (Negative) 09/01/18 17:50 Neg (Negative) 09/01/18 17:50 2.0 mg/dL (<2.0) 09/01/18 17:50 Ur Leukocyte Esterase Neg (Negative) 09/01/18 17:50 < 1.0 /HPF (0.0-6.0) 09/01/18 17:50 2.0 /HPF (0.0-6.0) 09/01/18 17:50 Presumptive negative 09/01/18 17:50 Presumptive negative 09/01/18 17:50 Ur Barbiturates Screen Presumptive negative 09/01/18 17:50 Ur Phencyclidine Scrn Presumptive negative 09/01/18 17:50 Ur Amphetamines Screen Presumptive negative 09/01/18 17:50 U Benzodiazepines Scrn Presumptive negative 09/01/18 17:50 Presumptive negative 09/01/18 17:50 U Marijuana (THC) Screen Presumptive negative 09/01/18 17:50 Disclamer 09/01/18 17:50 Plasma/Serum Alcohol < 0.01 % (0-0.07) 09/01/18 19:22 Active Medications - Current Medications Current Medications: Generic Name Dose Route Start Last Admin Trade Name Freq PRN Reason Stop Dose Admin Acetaminophen 650 mg 09/01/18 20:08 09/08/18 06:11 Tylenol PO 650 mg Q4H PRN Administration Pain MILD(1-3)/Fever >100.5/HAYDEN Aspirin 81 mg 09/02/18 10:00 09/08/18 09:07 Baby Aspirin PO 81 mg QDAY LIAN Administration Atorvastatin Calcium 20 mg 09/01/18 22:00 09/07/18 23:53 Lipitor PO 20 mg QHS LIAN Administration Docusate Sodium 100 mg 09/01/18 22:00 09/08/18 09:07 Colace PO 100 mg BID LIAN Administration Enoxaparin Sodium 40 mg 09/02/18 10:00 09/08/18 09:07 Lovenox SUB-Q 40 mg QDAY LIAN Administration Hydralazine HCl 10 mg 09/01/18 20:14 09/04/18 16:16 Apresoline IV 10 mg Q4H PRN Administration Blood Pressure Hydralazine HCl 25 mg 09/04/18 22:00 09/08/18 14:16 Apresoline PO 25 mg Q8HR LIAN Administration Dextrose 1,000 mls @ 75 mls/hr 09/04/18 20:00 09/08/18 09:12 D5w IV 50 mls/hr DIRECT LIAN Administration Levofloxacin 500 mg 09/06/18 10:00 09/08/18 09:07 Levaquin PO 500 mg Q24HR LIAN Administration Lorazepam 2 mg 09/01/18 21:56 09/05/18 14:47 Ativan IV 2 mg Q1H PRN Administration CIWA-Ar 8-15 Lorazepam 4 mg 09/01/18 21:56 09/05/18 17:11 Ativan IV 4 mg Q1H PRN Administration CIWA-Ar 16-25 Ondansetron HCl 4 mg 09/01/18 20:08 Zofran IV Q8H PRN Nausea And Vomiting Potassium Phos/Sodium Phos 1 each 09/02/18 22:00 09/08/18 14:16 Phos-Nak PO 1 each Q8HR LIAN Administration Sodium Chloride 10 ml 09/01/18 22:00 09/08/18 09:08 Sodium Chloride Flush Syringe 10 Ml IV 10 ml BID LIAN Administration Sodium Chloride 10 ml 09/01/18 20:08 Sodium Chloride Flush Syringe 10 Ml IV PRN PRN LINE FLUSH Nutrition/Malnutrition Assess - Dietary Evaluation Nutrition/Malnutrition Findings: Nutrition Notes Start: 09/08/18 13:49 Freq: Status: Active Protocol: Document 09/08/18 13:49 SARAH (Rec: 09/08/18 14:02 SARAH [id number] [email or web address]) Nutrition Notes Need for Assessment generated from: LOS Initial or Follow up Assessment Current Diagnosis Sepsis,Hypertension Other Pertinent Diagnosis Metabolic encephalopathy, pneu Current Diet Regular Labs/Tests Na 135 BG 156 Pertinent Medications D5 at 75ml/hr, Colace, Phos- Nak TID Height 5 ft 9 in Weight 71 kg Usual Body Weight 81.8 kg [place] Body Weight (kg) 72.72 BMI 23.1 Intake Prior to Admission Fair Weight change and time frame Pt reports 13.2% unintentional wt loss over the past yr Weight Status Appropriate Subjective/Other Information Pt screened for LOS. Currently on CIWA protocol. Reports that his appetite is " not the best". Per RN report, he is eating ~25% of meals. Pt describes symptoms associated with heartburn. Spoke with RN to see if he can get medication for relief. Percent of energy/protein needs met: 30% energy 31% pro Burn Absent Trauma Absent GI Symptoms Other Current % PO Poor (25-49%) Energy Intake (severe) < or equal to 50% Estimated Energy Requirement > or equal to 5 days Interpretation of Weight Loss (non- 10% in 6 months severe) #1 Nutrition Diagnosis Malnutrition Etiology encephalopathy As Evidenced by Signs and Symptoms pt with unintentional wt loss and poor PO intake Is patient on ventilator? No Is Patient Ambulatory and/or Out of Bed Yes REE-([facility]-ambulatory/OOB) [ [id number] [id number]] Calculation Used for Recommendations [facility] Additional Notes Pro needs 1-1.2g/k-85g/ day Fluid needs 1ml/kcal Nutrition Intervention Change Diet Order: Continue current diet Add Supplement/Snack (indicate name/kcal Ensure BID /protein ) Provides kCal: 700 Provides Protein (gm) 40 Goal #1 PO intake of meals plus ONS to meet at least 75% energy and pro needs Goal #2 Wt maintenance Anticipated Discharge Needs: Continue ONS 1-2 times daily if PO intake remains suboptimal Follow-Up By: 09/11/18 Additional Comments F/U: intakes (meals/ONS), wt
[2018-09-08] MEDS ORDERED: HALDOL IM PRN (18:03)
[2018-09-09] MEDS: LOVENOX SUB-Q SCH (09:25)
[2018-09-09] MEDS: BABY ASPIRIN PO SCH (09:25)
[2018-09-09] MEDS: LEVAQUIN PO SCH (09:25)
[2018-09-09] MEDS: COLACE PO SCH (09:25)
[2018-09-09] MEDS: SODIUM CHLORIDE FLUSH SYRINGE 10 ML IV SCH (09:26)
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
[2018-09-09 13:26] VITALS: BP 131/73
[2018-09-09] MEDS: PHOS-NAK PO SCH (13:33)
[2018-09-09] MEDS: APRESOLINE PO SCH (13:33)
--- NOTE | 2018-09-09 17:21 | XRay Report ---
PROCEDURE: XR CHEST 1V AP TECHNIQUE: Chest radiograph single view. HISTORY: f/u pneumonia COMPARISONS: Comparison is dated September 01, 2018 . FINDINGS: Heart: Normal. Mediastinum/Vessels: Normal. Lungs/Pleural space: Normal. Bony thorax: No acute osseous abnormality. Life support devices: None. Pulmonary opacities seen previously no longer identified IMPRESSION: No acute cardiopulmonary abnormality. This document is electronically signed by Rancho Harding MD., September 09 2018 05:19:35 PM ET
== END 2018-09-09 17:20 | DRG 871 ==
LOC: ED 15:34 → 4A 19:36 → 2B-ACE 09-05 22:36
PROVIDERS: ADMIT Internal Medicine; ATTEND Internal Medicine
DX: A41.9 Sepsis, unspecified organism (principal); G93.41 Metabolic encephalopathy; J18.9 Pneumonia, unspecified organism; E87.0 Hyperosmolality and hypernatremia; G45.9 Transient cerebral ischemic attack, unspecified; I16.0 Hypertensive urgency; E87.6 Hypokalemia; J01.90 Acute sinusitis, unspecified; E78.5 Hyperlipidemia, unspecified; F03.90 Unspecified dementia, unspecified severity, without behavioral disturbance, psychotic disturbance, mood disturbance, and anxiety
CPT/HCPCS: 36415; 70450; 71045; 80048; 80053; 80061; 80307; 80320; 81001; 82140; 83735; 84100; 85025; 85610; 85730; 87040; 93005; 93010; 93880; 96361; 96365; 99285; G0378; A9270-GY; G0480; J0360; J0696; J1630; J1650; J1956; J2060; J3475; J7030; J7070